=== PATIENT | male | born 1975 | race Caucasian/White ===

== ENCOUNTER 2025-02-03 08:47 | Emergency (ER) | payer OTHER, SELFPAY ==
--- NOTE | ~2025-02-03 | XR_ITS ---
CLINICAL HISTORY: lac 2 view left 5th digit Comparison: None Findings: There is a soft tissue laceration medially in the distal aspect of the 5th digit adjacent to the distal phalanx. No underlying osseous compromise. No radiopaque foreign bodies. No acute fractures or dislocation. IMPRESSION: Soft tissue laceration without obvious underlying osseous compromise or radiopaque foreign bodies. This document has been electronically signed by: Jewel Carmen MD on 02/03/2025 09:35:25
[2025-02-03 08:50] VITALS: BP 160/99; PULSE 93; RESP 16; TEMP 36.2; O2SAT 93; BMI 37.9
--- NOTE | 2025-02-03 09:03 | ED_ITS ---
HPI - Wound/Laceration General Chief Complaint: Wound/Laceration Stated Complaint: finger lac @ work Time Seen by Provider: 02/03/25 09:02 Source: patient and RN notes reviewed Mode of arrival: ambulatory Limitations: no limitations History of Present Illness ED Provider: Amina Starkey PA-C HPI narrative: This is a 49-year-old male who presents emergency department for evaluation left 5th digit laceration. Patient reports that while he was at work this morning his finger got caught between a wrench in a metal cart. He states that he is right-hand dominant. His last tetanus was within the last 5 years. He took 2 aspirin prior to his arrival today. No other complaints or concerns at this time. Onset (ago): minute(s) Place: work Patient tetanus UTD: Yes Context: accidental Associated symptoms: pain Treatments prior to arrival: bandage Related Data Previous Rx's ?Medication ?Instructions ?Recorded acetaminophen 500 mg tablet 1,000 mg (2 x 500 mg) PO Q ID PRN 02/03/25 (Tylenol Extra Strength) pain #30 tabs cephalexin 500 mg capsule 500 mg PO QID 7 days #28 cap s 02/03/25 ibuprofen 600 mg tablet 600 mg PO Q6H PRN pain #30 t abs 02/03/25 morphine 15 mg immediate release 15 mg PO Q6H PRN irma re pain 02/03/25 tablet (scale score 7-10) #7 tabs ondansetron 4 mg disintegrating 4 mg PO Q6H PRN nausea and 02/03/25 tablet vomiting #10 tabs Allergies Allergy/AdvReac Type Severity Reaction Status Date / Time No Known Allergies Allergy Verified 02/03/25 08:50 Review of Systems 2 Review of Systems: Constitutional : No Fever, No Chills ENT/Mouth : No sore throat, No Rhinorrhea Eyes: No Eye Pain, No Swelling, No Redness Cardiovascular : No Chest Pain, No SOB Respiratory : No Cough, No Sputum Gastrointestinal : No Nausea, No Vomiting, No Diarrhea, No abdominal Pain Genitourinary : No Dysuria, No Hematuria Musculoskeletal : No joint pain, No Myalgias, No Joint Swelling Skin : No Skin Lesions Neuro : No Weakness, No Numbness, No Headache All other systems reviewed and are negative Yes all other systems are reviewed and are negative Constitutional: Constitutional: Reports as per HPI [facility] Social History Social History Advance Directives: No Advance Directives Information Provided: Yes Physical Exam 2 Exam: Exam: General: Awake, alert, and oriented X3. No acute distress. HEENT: Normal inspection CVS: Normal heart rate and rhythm. Pulses normal. Respiratory: No respiratory distress Skin: See below Extremities: See below Neuro: Oriented X 3. No motor deficit. No sensory deficit. Left fifth digit there is a full thickness laceration noted to the nail bed. When patient lifts finger off of table, entire DIP falls. Sensation intact. Strong radial pulse Vital Signs: Vital Signs: Last Vital Signs Temp 97.2 F 02/03/25 12:22 Pulse 69 02/03/25 12:22 Resp 16 02/03/25 12:22 BP 160/99 H 02/03/25 12:22 Pulse Ox 96 02/03/25 12:22 O2 Del Method Room Air 02/03/25 12:22 BMI result Body Mass Index 37.9 Medications Administered Discontinued Medications Generic Name Dose Route Start Last Admin Trade Name Freq PRN Reason Stop Dose Admin Acetaminophen 975 mg 02/03/25 09:26 02/03/25 09:39 Acetaminophen 325 Mg Tablet PO 02/03/25 09:27 975 mg ONCE ONE Administration Cefazolin Sodium 1 gm 02/03/25 09:57 02/03/25 11:06 Cefazolin Sodium 1 Gm Vial IVPUSH 02/03/25 09:58 1 gm ONCE ONE Administration Lidocaine HCl 5 ml 02/03/25 09:15 02/03/25 11:06 Lidocaine Hcl 1 % Mpf 5 Ml Vial INFILTRATI 02/03/25 09:16 5 ml ONCE ONE Administration Morphine Sulfate 4 mg 02/03/25 10:20 02/03/25 10:33 Morphine Sulfate 4 Mg/Ml Cartridge IVPUSH 02/03/25 10:21 4 mg ONCE ONE Administration Protocol Ondansetron HCl 4 mg 02/03/25 10:20 02/03/25 10:33 Ondansetron Hcl 4 Mg/2 Ml Vial IVPUSH 02/03/25 10:21 4 mg ONCE ONE Administration Medical Decision Making Medical Decision Making MDM Narrative: This is a 49-year-old male who presents emergency department for evaluation left 5th digit laceration. Patient reports that while he was at work this morning his finger got caught between a wrench in a metal cart. On arrival, blood pressure elevated 160/99, likely secondary to pain. Patient with open fracture noted. Consult with orthopedic Marisabel SIERRA who consulted Dr. Harden. Awaiting recommendations. 09:37 AM 02/03/2025 (Amina Starkey PA-C): Dr. Harden stating if well vasculitis, can do digital or ulnar block, washed out, and close suture the wound. Advised dose of antibiotics and oral antibiotics. They will follow-up with patient early next week. Patient given 1 dose of Ancef. Wound was repaired using 5 5 0 sutures, see procedure note for detail. X-ray of the left finger was initially read as no acute findings, however patient with obvious fracture. They will place an addendum onto this Radiology read. Patient discharged on Keflex, given ibuprofen, Tylenol, morphine, and Zofran prescriptions. Given orthopedic referral. Splinted with finger splint Differential Diagnosis Differential Diagnoses: The differential diagnosis associated with the presentation includes Fracture, open fracture, laceration, contusion Procedures Laceration Laceration 1: Site: hand Side (If applicable): left Size (cm): 2 Description: linear Depth: simple, single layer Local Anesthetic: lidocaine 1% Amount of anesthesia used (mL): 5 Pre-repair: wound explored, irrigated extensively and deep structures intact Skin layer closed with: nylon Size (cm): 5-0 Number of sutures: 5 Technique: simple, interrupted Discharge Plan Discharge Clinical Impression: Laceration, Finger fracture, left Patient Disposition: Home, Self-Care Instructions: Care For Your Stitches (ED), Laceration (ED), Finger Fracture (ED) Additional Instructions: You were seen in the ER after injuring your left fifth digit. We placed 5 sutures in your finger. Please keep wound clean and dry. The dressing that we put on today, you can remove tomorrow. You can gently rinse with mild soap and water. Wear finger splint at all times other than rinsing wound. Keep wound covered. Follow up with the business process specialist, call on wednesday to make an appointment. You need to take prescribed antibiotic as directed. Finish the entire course. Alternate between ibuprofen and Tylenol. Ibuprofen 600 mg every 6 hours, 2 hours later take Tylenol 1000 mg (take this every 8 hours). Morphine as a strong narcotic pain medication, reserve this for severe pain only. Please be advised that this can cause drowsiness, do not drink alcohol or drive while taking this medication. This also is an addictive medication therefore should only be reserved for severe pain only. Ondansetron is a nausea medication that you can take if you do have nausea with taking the morphine. If any new or worsening symptoms occur including but not limited to severe pain, fevers, significant drainage to your finger, loss of sensation to your finger, if the tip of your finger becomes very discolored, please seek emergent care. Prescriptions: New ibuprofen 600 mg tablet 600 mg PO Q6H PRN (Reason: pain) Qty: 30 0RF acetaminophen [Tylenol Extra Strength] 500 mg tablet 1,000 mg PO QID PRN (Reason: pain) Qty: 30 0RF morphine 15 mg tablet 15 mg PO Q6H PRN (Reason: severe pain (scale score 7-10)) Qty: 7 0RF Rx Instructions: Partial Fill upon patient request. ondansetron 4 mg tablet,disintegrating 4 mg PO Q6H PRN (Reason: nausea and vomiting) Qty: 10 0RF cephalexin 500 mg capsule 500 mg PO QID 7 Days Qty: 28 0RF Referrals: [facility] [Provider Group] Interventions: ED Discharge Assessment Last Done: 02/03/25 12:22 Discharge Date/Time: 02/03/25 12:23 Print Language: Italian
--- OUTSIDE RECORDS SUMMARY | 2025-02-03 10:09 | XMS_ITS | Data Portability ---
Author Organization [place] [facility] Address [address] [place] [address] Assessment Encounter Date Assessment Date Assessment LastModified by Organization Details LastModified Time 01/24/2020 01/24/2020 44 y/o WM to establish. Duong and Suni Herring referred. We spent greater than 40 minutes of face to face time today discussing his past medical, family, surgical and social history as well as current medical complaints. stress pain and pressure in the neck labs todaya ekg normal. trial of bystolic labs and f/u. Not available 01/24/2020 15:08:35 02/08/2020 02/08/2020 I spent over 30 minutes in the care and management of this patient. Most of the time was used in counseling and education and explaining plan of care. [email or web address] Not available 02/08/2020 21:33:33 05/09/2020 05/09/2020 I spent over 30 minutes in the care and management of this patient. Most of the time was used in counseling and education and explaining plan of care. [email or web address] Not available 05/09/2020 10:00:12 Plan of Treatment Reminders Order Date Submit Date Provider Last Modified By Organization Details Last Modified Time Details Appointments None recorded. Lab HbA1c (hemoglob in A1c), blood 2020 021 [facility], [address] [facility], [address], [place], [address], 14:53:20 CMP, serum or plasma 2020 021 [facility], [address], [address], [place], [address], 1 14:18:12 CMP, serum or plasma 2019 020 [facility], [address], [address], [place], [address], 0 14:18:52 T4, free, serum 2019 020 [facility], [address], [address], [place], [address], 0 14:53:21 TSH, serum or plasma 2019 020 [facility], [address], [address], [place], [address], 0 14:53:22 CBC w/ diff 2019 020 [facility], [address], [address], [place], [address], 0 17:08:16 lipid panel, serum 2019 020 [facility], [address], [address], [place], [place], [address], 0 14:18:53 testoster one, total, serum 2019 020 [facility], [address], [address], [place], [address], 0 14:53:23 HbA1c (hemoglob in A1c), blood 2019 020 [facility], [address], [address], [place], [address], 0 17:44:10 Referral None recorded. Procedures None recorded. Surgeries None recorded. Imaging None recorded. Medication Orders Bystolic 5 mg tablet 2019 020 INTERFACE [id number], [address], [place], [place], [id number], 0 21:34:03 Patient TargetsNo targets recorded. Patient Instructions Encounter Date Encounter Id Patient Instructions Last Modified By Organization Details Last Modified Time 07/25/2019 [id number] bruises: care instructions Not available 07/25/2019 12:15:29 today we discuss ed oral anti-inflammatory weightbearing as tolerated rest ice compression and elevation followed back up with me in 2 weeks of continued pain for repeat x-rays. Not available 07/25/2019 12:15:21 01/24/2020 [id number] palpitations: ca re instructions Not available 01/24/2020 15:03:06 high blood pressure: care instructions Not available 01/24/2020 15:08:35 learning about high blood pressure Not available 01/24/2020 15:08:36 hypoglycemia: ca re instructions Not available 01/24/2020 15:03:07 02/08/2020 [id number] high blood pressure: care instructions [email or web address] Not available 02/08/2020 21:33:55 learning about high blood pressure [email or web address] Not available 02/08/2020 21:33:55 body mass index: care instructions [email or web address] Not available 02/08/2020 21:33:55 learning about healthy weight [email or web address] Not available 02/08/2020 21:33:55 05/09/2020 [id number] high blood pressure: care instructions [email or web address] Not available 05/09/2020 10:00:14 learning about high blood pressure lsamarin Not available 05/09/2020 10:00:14 body mass index: care instructions [email or web address] Not available 05/09/2020 10:00:14 learning about healthy weight [email or web address] Not available 05/09/2020 10:00:14 Reason for Referral None Reported. Results Created Date Observation Date Name Description Value Unit Range Abnormal Flag Note LastModifiedBy Organization Detail LastModifiedTime 01/24/20 20 01/24/2020 CBC w/ diff WBC 6.0 K/uL 4.8-10 .8 Not Available [facility] [address] [facility] [address], [place], [address], 01/24/2020 17:08:16 01/24/20 20 01/24/2020 CBC w/ diff RBC 5.00 M/uL 4.70-6 .10 Not Available [facility] [address] [facility] [address], [place], [address], 01/24/2020 17:08:16 01/24/20 20 01/24/2020 CBC w/ diff HGB 15.7 g/dL 14.0-1 8.0 Not Available [facility] [address] [facility] [address], [place], [address], 01/24/2020 17:08:16 01/24/20 20 01/24/2020 CBC w/ diff HCT 46.4 % 42.0-5 2.0 Not Available [facility] [address] [facility] [address], [place], [address], 01/24/2020 17:08:16 01/24/20 20 01/24/2020 CBC w/ diff MCV 93 fL 80-94 Not Available [facility] [address] [facility] [address], [place], [address], 01/24/2020 17:08:16 01/24/20 20 01/24/2020 CBC w/ diff MCH 31.4 pg 27.0-3 1.0 high Not Available [facility] [address] [facility] [address], [place], [address], 01/24/2020 17:08:16 01/24/20 20 01/24/2020 CBC w/ diff MCHC 33.9 g/dL 32.0-3 6.0 Not Available [facility] [address] [facility] [address], [place], [address], 01/24/2020 17:08:16 01/24/20 20 01/24/2020 CBC w/ diff plt 189 K/uL 130-40 0 Not Available [facility] [address], [place], [address], 01/24/2020 17:08:16 01/24/20 20 01/24/2020 CBC w/ diff RDW 13.8 % 11.5-1 6.0 Not Available [facility] [address], [place], [address], 01/24/2020 17:08:16 01/24/20 20 01/24/2020 CBC w/ diff _MPV 8.9 Not Available [facility] [address], [place], [address], 01/24/2020 17:08:16 01/24/20 20 01/24/2020 CBC w/ diff neut % 61.2 % 43.0-7 5.0 Not Available [facility] [address], [place], [address], 01/24/2020 17:08:16 01/24/20 20 01/24/2020 CBC w/ diff lym % 26.9 % 20.5-5 1.1 Not Available [facility] [address], [place], [address], 01/24/2020 17:08:16 01/24/20 20 01/24/2020 CBC w/ diff mono % 8.1 % 1.7-10 .0 Not Available [facility] [address], [place], [address], 01/24/2020 17:08:16 01/24/20 20 01/24/2020 CBC w/ diff eos % 2.1 % 0.0-7. 0 Not Available [facility] [address] [facility] [address], [place], [address], 01/24/2020 17:08:16 01/24/20 20 01/24/2020 CBC w/ diff baso % 1.7 % 0.0-2. 0 Not Available [facility] [address] [facility] [address], [place], [address], 01/24/2020 17:08:16 01/24/20 20 01/24/2020 CBC w/ diff neut # 3.7 K/uL 1.4-6. 5 Not Available [facility] [address] [facility] [address], [place], [address], 01/24/2020 17:08:16 01/24/20 20 01/24/2020 CBC w/ diff lym # 1.6 K/uL 1.3-3. 4 Not Available [facility] [address] [facility] [address], [place], [address], 01/24/2020 17:08:16 01/24/20 20 01/24/2020 CBC w/ diff mono # 0.5 K/uL 0.0-0. 8 Not Available [facility] [address] [facility] [address], [place], [address], 01/24/2020 17:08:16 01/24/20 20 01/24/2020 CBC w/ diff eos # 0.1 K/uL 0.0-0. 7 Not Available [facility] [address] [facility] [address], [place], [address], 01/24/2020 17:08:16 01/24/20 20 01/24/2020 CBC w/ diff baso # 0.1 K/uL 0.0-0. 2 Not Available [facility] [address] [facility] [address], [place], [address], 01/24/2020 17:08:16 01/24/20 20 01/24/2020 HbA1c (hemo globi n A1c), blood Hb A1C 6.3 % 4.2-5. 8 high Not Available [facility] [address] [facility] [address], [place], [address], 01/24/2020 17:44:10 01/24/20 20 01/25/2020 CMP, serum or plasm a glucose 76 mg/dL 74-100 IMPAI RED FASTI NG GLUCO SE - >100- 125 IMPAI RED 2HR POST PRAND IAL - >140 IMPAI RED RANDO M GLUCO SE - >140- 200 Not Available [facility] [address] [facility] [address], [place], [address], 01/25/2020 14:18:52 01/24/20 20 01/25/2020 CMP, serum or plasm a BUN 11 mg/dL 9-20 Not Available [facility] [address] [facility] [address], [place], [address], 01/25/2020 14:18:52 01/24/20 20 01/25/2020 CMP, serum or plasm a crea 0.8 mg/dL 0.7-1. 3 Not Available [facility] [address] [facility] [address], [place], [address], 01/25/2020 14:18:52 01/24/20 20 01/25/2020 CMP, serum or plasm a Na 140 mmol/ L 137-14 5 Not Available [facility] [address] [facility] [address], [place], [address], 01/25/2020 14:18:52 01/24/20 20 01/25/2020 CMP, serum or plasm a K 5.4 mmol/ L 3.5-5. 1 high Not Available [facility] [address] [facility] [address], [place], [address], 01/25/2020 14:18:52 01/24/20 20 01/25/2020 CMP, serum or plasm a cL 101 mmol/ L 98-107 Not Available [facility] [address] [facility] [address], [place], [address], 01/25/2020 14:18:52 01/24/20 20 01/25/2020 CMP, serum or plasm a TCO2 26 mmol/ L 22-33 Not Available [facility] [address] [facility] [address], [place], [address], 01/25/2020 14:18:52 01/24/2001/25/2020 CMP, serum or plasm a anion gap 18.4 mmol/ L 10.0-2 0.0 Not Available [facility] [address] [facility] [address], [place], [address], 01/25/2020 14:18:52 01/24/20 20 01/25/2020 CMP, serum or plasm a calcium 10.1 mg/dL 8.4-10 .2 Not Available [facility] [address] [facility] [address], [place], [address], 01/25/2020 14:18:52 01/24/2001/25/2020 CMP, serum or plasm a total protein 7.4 g/dL 6.3-8. 2 Not Available [facility] [address] [facility] [address], [place], [address], 01/25/2020 14:18:52 01/24/20 20 01/25/2020 CMP, serum or plasm a albumin 4.7 g/dL 3.5-5. 0 Not Available [facility] [address] [facility] [address], [place], [address], 01/25/2020 14:18:52 01/24/2001/25/2020 CMP, serum or plasm a globulin 2.7 g/dL 2.2-4. 2 Not Available [facility] [address] [facility] [address], [place], [address], 01/25/2020 14:18:52 01/24/20 20 01/25/2020 CMP, serum or plasm a A/G ratio 1.7 calc 1.0-2. 0 Not Available [facility] [address] [facility] [address], [place], [address], 01/25/2020 14:18:52 01/24/20 20 01/25/2020 CMP, serum or plasm a ALT(SGPT) 52 IU/L 0-50 high NOTE: OF 03/01 , DUE TO A REAGE NT BARILLAS E BY [facility], THE REFER ENCE RANGE S FOR ALT HAVE BARILLAS ED FOR MALE AND FEMAL E. Not Available [facility] [address] [facility] [address], [place], [address], 01/25/2020 14:18:52 01/24/20 20 01/25/2020 CMP, serum or plasm a AST(SGOT) 39 IU/L 15-46 Not Available [facility] [address] [facility] [address], [place], [address], 01/25/2020 14:18:52 01/24/2001/25/2020 CMP, serum or plasm a alk phos 76 IU/L 38-126 Not Available [facility] [address] [facility] [address], [place], [address], 01/25/2020 14:18:52 01/24/20 20 01/25/2020 CMP, serum or plasm a tbil 0.7 mg/dL 0.2-1. 3 Ortho Diagn ositi cs has deter mined Eltro mbopa g inter feres with Vitro s TBIL and Vitro s BuBc resul ts when admin ister ed to patie nts. Eltro mbopa g is a bone marro w stimu lant used to treat throm bocyt openi a and aplas tic anemi a. * Not Available [facility] [address] [facility] [address], [place], [address], 01/25/2020 14:18:52 01/24/20 20 01/25/2020 lipid panel , serum cholesterol 151 mg/dL 112-20 0 Note: Refer ence Range s Barillas ed 05/11 Not Available [facility] [address] [facility] [address], [place], [address], 01/25/2020 14:18:53 01/24/20 20 01/25/2020 lipid panel , serum triglyceride 113 mg/dL 0-150 Not Available [facility] [address] [facility] [address], [place], [address], 01/25/2020 14:18:53 01/24/20 20 01/25/2020 lipid panel , serum HDL direct 37 mg/dL 40-60 low Not Available [facility] [address] [facility] [address], [place], [address], 01/25/2020 14:18:53 01/24/20 20 01/25/2020 lipid panel , serum VLDL 23 mg/dL 6-40 Not Available [facility] [address] [facility] [address], [place], [address], 01/25/2020 14:18:53 01/24/20 20 01/25/2020 lipid panel , serum LDL calc 91 calc 0-100 The calcu latio n of LDL-c holes terol and VLDL- Nena stero l are only relia ble when the Trigl yceri de level is less than 400 mg/dl . Likew ise other calcu latio ns like LDL/H DL ratio will not be relia ble. There fore, when the trigl yceri de level is above 400 mg/dl , a relia ble LDL judd ntrat ion will requi re direc t measu remen t rathe r than calcu latio n. Not Available [facility] [address] [facility] [address], [place], [address], 01/25/2020 14:18:53 01/24/20 20 01/25/2020 lipid panel , serum chol/HDL ratio 4.1 calc 0.0-4. 0 high Not Available [facility] [address] [facility] [address], [place], [address], 01/25/2020 14:18:53 01/24/20 20 01/25/2020 GFR, estim ated (eGFR ), serum eGFR 104.1 mL/mi n >60.0 Note: The GFR resul t is based on a patie nt of the Cauca tom Race. If the patie nt is Afric an Ameri can, ki orta ply the resul t value by 1.21 to obtai n the accur ate GFR value . Not Available [facility] [address], [place], [address], 01/25/2020 14:18:54 01/24/20 20 01/25/2020 T4, free, serum free T4 1.47 NG/dL 0.78-2 .19 This free t4 was evalu ated using Ortho Diagn ositi cs ECI Micro welll Vitro s 5600 techn ology . Not Available [facility] [address] [facility] [address], [place], [address], 01/25/2020 14:53:21 01/24/20 20 01/25/2020 TSH, serum or plasm a TSH 0.96 uIU/m L 0.40-4 .50 R efere nce Range Barillas e 09/07 per [facility] Note: Patie nts takin g 8 ng/ml of Bioti n could have a >or= 10% bias in TSH resul ts. This TSH was evalu ated using Ortho Diagn ositi cs [employer] Micro well[employer] Vitro s 5600 techn ology . Not Available [facility] [address] [facility] [address], [place], [address], 01/25/2020 14:53:22 01/24/20 20 01/25/2020 testo stero ne, total , serum testosterone 577 NG/dL 132-81 3 Not Available [facility] [address] [facility] [address], [place], [address], 01/25/2020 14:53:23 05/10/19 21 05/09/2020 CMP, serum or plasm a glucose 105 mg/dL 74-100 high IMPAI RED FASTI NG GLUCO SE - >100- 125 IMPAI RED 2HR POST PRAND IAL - >140 IMPAI RED RANDO M GLUCO SE - >140- 200 Not Available [facility] [address] [facility] [address], [place], [address], 05/09/2020 14:18:12 05/10/19 21 05/09/2020 CMP, serum or plasm a BUN 20 mg/dL 9-20 Not Available [facility] [address] [facility] [address], [place], [address], 05/09/2020 14:18:12 05/10/19 21 05/09/2020 CMP, serum or plasm a crea 0.9 mg/dL 0.7-1. 3 Not Available [facility] [address] [facility] [address], [place], [address], 05/09/2020 14:18:12 05/10/19 21 05/09/2020 CMP, serum or plasm a Na 140 mmol/ L 137-14 5 Not Available [facility] [address] [facility] [address], [place], [address], 05/09/2020 14:18:12 05/10/19 21 05/09/2020 CMP, serum or plasm a K 5.2 mmol/ L 3.5-5. 1 high Not Available [facility] [address] [facility] [address], [place], [address], 05/09/2020 14:18:12 05/10/19 21 05/09/2020 CMP, serum or plasm a cL 102 mmol/ L 98-107 Not Available [facility] [address] [facility] [address], [place], [address], 05/09/2020 14:18:12 05/10/19 21 05/09/2020 CMP, serum or plasm a TCO2 30 mmol/ L 22-33 Not Available [facility] [address] [facility] [address], [place], [address], 05/09/2020 14:18:12 05/10/19 21 05/09/2020 CMP, serum or plasm a anion gap 13.2 mmol/ L 10.0-2 0.0 Not Available [facility] [address] [facility] [address], [place], [address], 05/09/2020 14:18:12 05/10/19 21 05/09/2020 CMP, serum or plasm a calcium 9.9 mg/dL 8.4-10 .2 Not Available [facility] [address] [facility] [address], [place], [address], 05/09/2020 14:18:12 05/10/19 21 05/09/2020 CMP, serum or plasm a total protein 6.9 g/dL 6.3-8. 2 Ortho Diagn ositi cs has deter mined Eltro mbopa g inter feres sligh tly with Vitro s TP resul ts, when admin ister ed to roberts chapele nts. Eltro mbopa g is a bone marro w stimu lant used to treat throm bocyt openi a and aplas tic anemi a. * Not Available [facility] [address] [facility] [address], [place], [address], 05/09/2020 14:18:12 05/10/19 21 05/09/2020 CMP, serum or plasm a albumin 4.5 g/dL 3.5-5. 0 Not Available [facility] [address] [facility] [address], [place], [address], 05/09/2020 14:18:12 05/10/19 21 05/09/2020 CMP, serum or plasm a globulin 2.4 g/dL 2.2-4. 2 Not Available [facility] [address] [facility] [address], [place], [address], 05/09/2020 14:18:12 05/10/19 21 05/09/2020 CMP, serum or plasm a A/G ratio 1.9 calc 1.0-2. 0 Not Available [facility] [address] [facility] [address], [place], [address], 05/09/2020 14:18:12 05/10/19 21 05/09/2020 CMP, serum or plasm a ALT(SGPT) 21 IU/L 0-50 NOTE: OF 03/01 , DUE TO A REAGE NT BARILLAS E BY THE [facility] ACT[facility] ER, THE REFER ENCE RANGE S FOR ALT HAVE [facility] ED FOR MALE AND FEMAL E. Not Available [facility] [address] [facility] [address], [place], [address], 05/09/2020 14:18:12 05/10/19 21 05/09/2020 CMP, serum or plasm a AST(SGOT) 27 IU/L 15-46 Not Available [facility] [address] [facility] [address], [place], [address], 05/09/2020 14:18:12 05/10/19 21 05/09/2020 CMP, serum or plasm a alk phos 81 IU/L 38-126 Not Available [facility] [address] [facility] [address], [place], [address], 05/09/2020 14:18:12 05/10/19 21 05/09/2020 CMP, serum or plasm a tbil 0.6 mg/dL 0.2-1. 3 Ortho Diagn ositi cs has deter mined Eljakeo richard g inter feres with Vitro s TBIL and Vitro s BuBc resul ts when admin ister ed to patie nts. Mary ramos g is a bone marro w stimu lant used to treat throm bocyt openi a and aplas tic anemi a. * Not Available [facility] [address] [facility] [address], [place], [address], 05/09/2020 14:18:12 05/10/19 21 05/09/2020 GFR, estim ated (eGFR ), serum eGFR 90.8 mL/mi n >60.0 Note: The GFR resul t is based on a patie nt of the Cauca tom Race. If the patie nt is Afric an anna Hernandes ply the resul t value by 1.21 to obtai n the accur ate GFR value . Not Available [facility] [address] [facility] [address], [place], [address], 05/09/2020 14:18:13 05/10/19 21 05/09/2020 HbA1c (hemo globi n A1c), blood Hb A1C 5.6 % 4.2-5. 8 Not Available [facility] [address] [facility] [address], [place], [address], 05/09/2020 14:53:20 01/24/20 20 01/24/2020 elect harvinder bonilla am No observ ation record ed. BARCODE Not Available 2019 16:18:38 Result Notes None recorded. Problems Name Problem SNOMED Code Status Onset Date Resolution Date Notes Provider Name and Address Organization Details Recorded Time Essential hypertension 98105496 Active 2019 Valente Lua null, [place] - [facility] 0 15:03:21 Body mass index 30+ - obesity 683187953 Active 2019 Chuyita Izquierdo [place], [place] - [facility] 0 21:33:25 Liver enzymes level above reference range 133067847 Active 2019 Chuyita Izquierdo [place], [place] - [facility] 0 21:33:26 Prediabetes 767679071 Active 2019 Chuyita Izquierdo eryn [facility] 0 21:33:27 Problem Notes None recorded. Procedures Surgical History Date Name Laterality Status Provider Name and Address Organization Details Recorded Time EKG completed Valente Lua [facility] 01/24/2020 14:41:15 Xray 3 views RIGHT FOOT completed Bert Granados [facility] 07/25/2019 12:14:53 cholecystectomy completed Dalila Wen [facility] 01/24/2020 13:14:42 Imaging Results None recorded. Procedure Notes None recorded. Medical Equipment None Reported. Allergies No known drug allergies Medications Name Sig Start Date Stop Date Status Note LastModified by Organization Details LastModified Time meloxicam 7.5 mg tablet Take 1 tablet every day by oral route at bedtime for 30 days. 01/23 completed Not Available Not Available Not Available aspirin active Not Available Not Avail able Not Available Bystolic 5 mg tablet Take 1 tablet every day by oral route at bedtime for 90 days. active Not Available Not Available No t Available Vitals Date Recorded Body height Body mass index (BMI) Body weight Heart rate Respiratory rate Body temperature Oxygen saturation Systolic And Diastolic Provider Name and Address Organization Details Last Updated DateTime 1 193.04 cm 28.4 kg/m2 382509. 72 g 82 /min 16 /min 97.3 [degF] 97 % 140/80 mm[Hg] Isela Kilgore [facility] 1 09:20:20 Date Recorded Body weight Systolic And Diastolic Provider Name and Address Organization Details Last Updated DateTime 07/25/2019 281414.17 g 160/106 mm[Hg] Lauryn Giron [facility] 07/25/2019 11:01:36 Date Recorded Body height Body mass index (BMI) Body weight Heart rate Oxygen saturation Respiratory rate Body temperature Systolic And Diastolic Provider Name and Address Organization Details Last Updated DateTime 0 193.04 cm 34.4 kg/m2 102443. 64 g 90 /min 97 % 16 /min 97.7 [degF] 140/96 mm[Hg] Dalila Wen [facility] 0 13:12:49 Date Recorded Body height Body mass index (BMI) Body weight Heart rate Respiratory rate Body temperature Oxygen saturation Systolic And Diastolic Provider Name and Address Organization Details Last Updated DateTime 0 193.04 cm 33.7 kg/m2 704288. 29 g 73 /min 16 /min 97.5 [degF] 95 % 120/90 mm[Hg] Isela Kilgore [place] [facility] 0 08:59:07 Social History Question Answer Notes LastModified by Scheduling Employee Scheduling Software Details LastModified Time Tobacco Smoking Status Current Every Day Smoker Lauryn cerna [place] [facility] 07/25/2019 11:02:12 What Is Your Level Of Caffeine Consumption? Heavy [email or web address] Information not available 07/25/2019 In The 14 Days Before Symptom Onset, Have You Had Close Contact With A Laboratory-confirm ed COVID-19 While That Case Was Ill? No Information n ot available 05/09/2020 In The 14 Days Before Symptom Onset, Have You Had Close Contact With A Person Who Is Under Investigation For COVID-19 While That Person Was Ill? No Information not available 05/09/2020 Have You Been To An Area Known To Be High Risk For COVID-19? No Information not available 05/09/2020 Education 4 Year College [email or web address] Information not available 07/25/2019 Marital Status Single Informatio n not available 07/25/2019 What Was The Date Of Your Most Recent Tobacco Screening? 01/24/2020 Information not available 05/09/2020 How Much Tobacco Do You Smoke? 1 PPW Information not available 07/25/2019 Sex: Unknown Functional Status Question Answer Note LastModified by Scheduling Employee Scheduling Software Details LastModified Time What is your level of alcohol consumption? 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 Family History Relationship Description Onset Age of this Age Resolved Age Notes LastModified by Organization Details LastModified Time Father Hypertensive disorder Not available 03/2019 13:13:40 Father Coronary arterioscler osis [email or web address] Not available 03/2019 13:14:12 Father Myocardial infarction [email or web address] Not available 05/09 09:05:51 Mother Hypertensive disorder [email or web address] Not available 03/2019 13:13:45 Mother Malignant neoplasm of colon [email or web address] Not available 2020 09:05:51 Medical History No medical history recorded. Past Encounters Encounter ID Performer Location Encounter Start Date Encounter Closed Date Diagnosis/Indication Diagnosis SNOMED-CT Code Diagnosis ICD10 Code Diagnosis IMO Codes Diagnosis Note [id number] Costa Granados DPM [facility] [address] [facility], [address] [address] 07/25/2019 10:44:13 07/25/2019 11:21:45 Contusion of foot 81947710 S90.31XA Antalgic gait 94619950 R 26.89 Walking disability 39924 8008 R26.2 [id number] Valente Lua M.D. [facility] [address] [facility], [address] [address] 01/24/2020 12:50:48 01/24/2020 15:10:28 Atypical chest pain 680597988 R07.89 Palpitations 34437781 R0 0.2 Adult heal th examination 752499897 Z00.00 Hypoglycemia 021348838 E 16.2 Fatigue 82563839 R53.83 Essential hypertension 59547310 I10 trial of bystolic 5 mg daily and f/u to discuss. [id number] Valente Lua M.D. [facility] [address] [facility], [address] [address] 02/08/2020 08:50:17 02/09/2020 14:56:02 Essential hypertension 98163770 I10 continue bystolic 5 mg. Blood pressure well controlled on current medication regimen. Educated to monitor blood pressure at home and call office if BP consistent ly >140/90. Prediabetes 496041887 R7 3.03 a1c 6.3%. declines medication today. would like to try diet and lifestyle first. will f/u in 3 months for recheck Liver enzy mes level above reference range 466175501 R74.8 counseled on low-fat diet and weight loss. will recheck in 3 months Body mass index 30+ - obesity 952022101 Z68.33 Discussed lifestyle adjustment s such as increasing intake of fiber and following a heart healthy diet plan (low-fat, low-carb, and low-sodium ). Instructed to eat smaller, more frequent meals. Encouraged to increase amount of physical activity as tolerated, with goal being to exercise daily for a minimum of thirty minutes. [id number] Valente Lua M.D. [facility] [address] [facility], [address] [place] [address] 05/09/2020 09:01:25 05/14/2020 07:21:20 Essential hypertension 75244157 I10 bp stable. no longer taking bystolic. continue to work on lifestyle and continue weight loss efforts. Prediabetes 902046897 R7 3.03 last a1c was 6.3%. he is down 50 lbs. has been working on lifestyle changes including diet and running daily. will recheck today Liver enzy mes level above reference range 357054497 R74.8 continue weight loss efforts. rechecking cmp today Body mass index 30+ - obesity 127234823 Z68.33 Discussed lifestyle adjustment s such as increasing intake of fiber and following a heart healthy diet plan (low-fat, low-carb, and low-sodium ). Instructed to eat smaller, more frequent meals. Encouraged to increase amount of physical activity as tolerated, with goal being to exercise daily for a minimum of thirty minutes. Health Concerns Section Related Observation LastModified by Organization Detai ls LastModified Time None Recorded Concern Status LastModified by Organization Details LastModified Time None Recorded Advance Directives Directive None Recorded Payers Insurance Date Sequence Insurance Name Policy Number Policy Ayoub Covered Member ID Ayoub Member ID Guarantor Name 09/15/2024 1 [place] [employer] ([place]) [id number] Fabrizio Coombs [id number] Fabrizio Coombs Notes Date Note Type Note Provider Name and Address Organization Details Recorded Time 07/25/2019 text/html here todayChief complaint and patient 0.3-year-old malecontusion with a knee By another male phone to the dorsal aspect of his right transverse tarsal joint he's had some pain and swelling here today and counseling boots and just felt the necessity to have it checked out MELVINA Beck - [facility] 07/25/2019 12:15:32 01/24/2020 text/html Hypertension GP F/UReported by PatientHPIFor control, patient reportsat goal,usually well controlled,bp normal since last visit, andbp normal on current medication. For associated symptoms, patient reportsno dizziness,no lightheadedness,no chest pain,no shortness of breath,no palpitations, andno edema. For lifestyle, patient reportsregular exerciseandlimiting /avoiding salt. For medications, patient reportstaking medications as directedandno side effects from medication. 01/24/2020 Patient presents today for a check up, establish care and complaining of heart racing............. . 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 Valente cerna [facility] 01/24/2020 15:09:03 02/08/2020 text/html 02/08/20 pt is not to sure why he is here. Dr. Hay started him on BP meds. he did receive a call from us stating he needed to come in and discuss blood work. 44-year-old male presenting today for f/u on lab work and blood pressure. BP today is 120/90 and 73 bpm. started on bystolic 5 mg previous visit with dr. lua. has not been consistent with medication but will try harder he says. denies any cv complaints.kidney function stable on labs. gfr was 104.1 and creatinine 0.8. thyroid panel stable. lipid panel overall stable. total chol. 151, triglycerides 113 and LDL 91. Did have slighty elevated alt at 52. ast was 39. has been running again and working on diet.a1c was 6.3. discussed with pt but he is wanting to worik on diet first. does not do well with medications and often forgets. would like to try to work on diet and then [facility] and [facility] 02/08/2020 21:35:15 05/09/2020 text/html 05/09/20 Pt told the truth, he only took new medication for a couple of days 44-year-old male presenting today for f/u on lab work and blood pressure. BP today is 140/80 and 82 bpm. started on bystolic 5 mg previous visit with dr. lua. however he stopped taking it and decided to work on lifestyle. he worked on his diet and starting running every day. he has lost 50 lbs since january. his a1c in january was 6.3. due for recheck today. MELVINA Garcia - [facility] 05/09/2020 20:38:54
--- OUTSIDE RECORDS SUMMARY | 2025-02-03 10:09 | XMS_ITS | Continuity of Care Document ---
Author Organization [employer] Address [address] [place] [address] Phone Problems Prediabetes Onset:08-Feb-2020 21:33 Elevated liver enzymes level Onset:08-Feb-2020 21:33 Body mass index 30+ - obesit y Onset:08-Feb-2020 21:33 Essential hypertension Onset:24-Jan-2020 15:03 Migraine headache Onset:21-Mar-2017 1:02 Status:Resolved Back pain Onset:13-Aug-2016 12:38 Lymph nodes enlarged Onset:21-Dec-2014 13:36 Nicotine dependence Onset:19-Jul-2014 16:01 Encounter for preventive hea lt examination Onset:19-Jul-2014 15:56 Impaired fasting glucose Onset:19-Jul-2014 15:56 Former smoker Onset:19-Jul-2014 15:19 Current every day smoker Onset:19-Jul-2014 15:19 Colon cancer Onset:19-Jul-2014 15:19 Family history of myocardial infarction Onset:19-Jul-2014 15:19 Sinus congestion Onset:16-Jun-2013 16:58 Fever Onset:16-Jun-2013 16:21 Tension type headache Onset:06-Jan-2013 0:10 Status:Resolved Depression Onset:06-Jan-2013 0:10 Status:Resolved Acute otitis externa Onset:06-Jan-2013 0:10 Status:Resolved Earache Onset:06-Jan-2013 0:10 Status:Resolved Fatigue Onset:06-Jan-2013 0:10 Cough Onset:06-Jan-2013 0:10 Status:Assumed Resolved Cough Onset:06-Jan-2013 0:10 Status:Resolved Acute foot pain Onset:06-Jan-2013 0:10 Status:Resolved Diarrhea Onset:06-Jan-2013 0:10 Status:Resolved Insomnia Onset:06-Jan-2013 0:10 Acute sinusitis Onset:06-Jan-2013 0:10 Status:Resolved History of upper respiratory infection Onset:06-Jan-2013 0:10 Status:Resolved History of acute bronchitis Onset:06-Jan-2013 0:10 Status:Assumed Resolved Urinary Tract Infection Onset:08-Mar-2006 20:59 Status:Resolved Allergies and Adverse Reactions No Known Drug Allergies(Frederic rgy) Onset: 09-May-2020 No Known Drug Allergies(Frederic rgy) Onset: 14-Apr-2004 13:28 NO KNOWN ENVIRONMENTAL ALLER GIES(Allergy) Medications Norel CS 10-4-12.5 MG/5ML LIQD S tart:16-Jun-2013 Status:Discontinued Multivitamins TABS;qd Start: Comments:qd acetaminophen 500 MG / HYDRO codone bitartrate 7.5 MG Oral Tablet Start:21-Apr-2010 Status:Discontinued methylPREDNISolone 4 MG Oral Tablet Start:21-Apr-2010 Status:Discontinued indomethacin 50 MG Oral Capsule Start:21-Apr-2010 Status:Discontinued ciprofloxacin 3 MG/ML / dexa methasone 1 MG/ML Otic Suspension [Ciprodex];112 2 OT bid Start:10-Jan-2009 Status:Discontinued Comments:bid traMADol hydrochloride 50 MG Oral Tablet;90 3 OR tid Start:07-Sep-2008 Status:Discontinued Comments:tid cyclobenzaprine hydrochloride 10 MG Oral Tablet; 90 3 OR tid Start:07-Sep-2008 Status:Discontinued Comments:tid moxifloxacin 400 MG Oral Tablet [Avelox];10 1 OR qd Start:30-Dec-2006 Status:Discontinued Comments:qd atropine sulfate 0.025 MG / diphenoxylate hydrochloride 2.5 MG Oral Tablet Start:18-Nov-2006 Status:Complete promethazine hydrochloride 25 MG Oral Tablet Start:09-Mar-2006 Status:Discontinued 24 HR clarithromycin 500 MG Extended Release Oral Tablet;20 2 OR qd Start:08-Mar-2006 Status:Complete Comments:qd 12 HR guaiFENesin 600 MG Ext ended Release Oral Tablet [Mucinex];20 1 OR bid Start:08-Mar-2006 Status:Complete Comments:bid Tussionex [employer] Start: Status:Complete RETURN TO WORK Start: 7 Status:Complete amoxicillin 875 MG / clavulanate 125 MG Oral Tab let Start:14-Apr-2004 Status:Complete 12 HR guaiFENesin 600 MG Ext ended Release Oral Tablet [Mucinex];30 1 OR bid Start:14-Apr-2004 Status:Complete Comments:bid oxymetazoline hydrochloride 0.5 MG/ML Nasal Spra y;12 2 NA bid Start:14-Apr-2004 Status:Complete Comments:bid Vital Signs 09-May-2020 9:05 BMI 28.4 kg/m2 BP Diastolic 80 mm[Hg] BP Systolic 140 mm[Hg] Pulse 82 /min Respiratory Rate 16 /min Temperature 97.34 f O2 SAT 97 % Height 76 in Weight 233.12 lb 08-Feb-2020 8:51 BMI 33.7 kg/m2 BP Diastolic 90 mm[Hg] BP Systolic 120 mm[Hg] Pulse 73 /min Respiratory Rate 16 /min Temperature 97.52 f O2 SAT 95 % Height 76 in Weight 276.5 lb 24-Jan-2020 12:51 BMI 34.4 kg/m2 BP Diastolic 96 mm[Hg] BP Systolic 140 mm[Hg] Pulse 90 /min O2 SAT 97 % Respiratory Rate 16 /min Temperature 97.7 f Height 76 in Weight 283 lb 25-Jul-2019 10:49 BP Diastolic 106 mm[Hg] BP Systolic 160 mm[Hg] Weight 240 lb
--- OUTSIDE RECORDS SUMMARY | 2025-02-03 10:09 | XMS_ITS | Patient Health Record ---
Author Organization [facility]) Address [address] [place] [id number] Care Team Providers Care Negative Turner Apprentice Name Role Phone Vincent Osorio Unavailable [phone] Allergies No Known Allergies Results Component Value Reference Range Notes Influenza A (Not yet reviewe d by provider) Interpretation:Positive Performing Lab: Notes/Report: Positive Influenza B (Not yet reviewe d by provider) Interpretation:Negative Performing Lab: Notes/Report: Negative Reason For Referral No Information Medications Medication SIG (Take, Route, Frequency, Duration) Notes Start Date End Date Status dexAMETHasone 6 MG Tablet 1 tablet Orall y once a day; Duration: 5 days 03/30/2024 Active Ipratropium [place] 0.06 % Solution 2 sprays in each nostril Nasally four times a day; Duration: 7 days 03/30/2024 Active Naproxen 500 MG Tablet 1 tablet with fahad d or milk as needed Orally every 12 hrs; Duration: 7 days 03/30/2024 Active HYDROcodone Bit-Homatrop MBr 5-1.5 MG/5ML Solution 5 mL as needed Orally twice a day; Duration: 5 days 03/30/2024 Active Social History Tobacco Use: Social History Observation Description Date Details (start date - stop date) Current Smoker NA - NA Social History Tobacco Use: Social Info Question Answer Notes Tobacco Control (Standard) Tobacco use: Current smoker Problems Problem Type SNOMED Code ICD Code Onset Dates Problem Status W/U Status Risk Notes 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 Problem Influenza A virus (390538010) Influenza A (J10.1) Active confirmed Problem Cough (59647522) Cough (R05.9) Active confirmed Vital Signs Heart Rate 100 /min 03/30/2024 Temperature 98.8 degrees Fahrenheit 03/30/2024 Respiratory Rate 18 /min 03/30/2024 Oximetry 97 % 03/30/2024 Blood pressure diastolic 101 mm Hg 03/30/2024 Weight-kg 133.79 kg 03/30/2024 Height 71 in 03/30/2024 Blood pressure systolic 140 mm Hg 03/30/2024 Weight 295 lbs 03/30/2024 BMI 41.14 kg/m2 03/30/2024 Procedures Procedure Date Ordered Date Performed Result Body Sit e *[facility] Antigen Covid-19 Testing 03/30/2024 03/30/2024 Ne gative Encounters Encounter Location Date Provider Diagnosis [facility] [address] [place] [id number] 03/30/2024 Vincent Osorio Chest congestion R09 .89 ; Cough R05.9 ; Influenza A J10.1 and Acute costochondritis M94.0 Assessments Encounter Date Diagnosis (ICD Code) Assessment Notes Treatment Notes Treatment Clinical Notes Section Notes 03/30/2024 Chest congestion (ICD-10 - R09.89) A cough is your body's response to something that bothers your throat or airways. Many things can cause a cough. You might cough because of a cold or the flu, bronchitis, or asthma. Smoking, postnasal drip, allergies, and stomach acid that backs up into your throat also can cause coughs. A cough is a symptom, not a disease. Most coughs stop when the cause, such as a cold, goes away. Drink lots of water and other fluids. Honey or lemon juice in hot water or tea may ease a dry cough. Prop up your head on pillows to help you breathe and ease a dry cough. Try cough drops or hard candy to soothe a dry or sore throat. Do not smoke. Avoid secondhand smoke. If you need help quitting, talk to your doctor about stop-smoking programs and medicines. These can increase your chances of quitting for good. 03/30/2024 Cough (ICD-10 - R05.9) a. Over the counter cough syrups (eg Robitussin DM, Delsym) may be used to treat minor cough for patients 4 yo and older. Cough drops and lozenges may also help. b. If Tessalon Perles (Benzonatate) are ordered, these should be swollowed whole - the medicine inside these capsules can cause excessive numbing of the throat such that there is increased risk of aspirating. This med should be kept out of the reach of children and pets. c. Narcotic syrups, if prescribed by the provider, will cause drowsiness and care should be taken to avoid driving and use of hazardous equipment for the next 12 hours after using. They may also cause constipation, so use stool softeners or Miralax otc if needed. 03/30/2024 Influenza A (ICD-10 - J10.1) Influenza (sometimes called 'the flu') is a highly contagious virus that causes widespread illness every year. Immunization and practicing prevention measures are the best ways we can protect against the flu and reduce the number of influenza infections and deaths. Flu immunization is recommended for everyone from 6 months of age who want to protect themselves from the flu and its complications. Some people are more at risk of complications from the flu and are eligible for free vaccination. People who work or live with people who are at risk of serious complications should also be immunized to avoid spreading the flu. The flu vaccine cannot give you the flu because it does not contain any live virus. You can receive your flu vaccine at the same time as other vaccines including COVID-19 vaccine. 03/30/2024 Acute costochondritis (ICD-10 - M94.0) This is an inflammation where the cartilage of the rib meets the bone of the sternum. It is often seen in excessive use of arms such as aggressive exercising, push ups, weight lifting. Sometimes viral infections may trigger this response as well. Treatment consists of frequent warm compresses and use of nsaids. Indocin (Indomethacin) seems to give the best relief among all the nsaids. It is recommended you keep arm use to a minimum while this is healing. Continuing frequent pushing, pulling or lifting will keep this condition aggrevated and will make recovery much slower. This often takes several weeks to resolve, longer if you cannot rest these muscles. Plan Of Treatment Pending Test Test Name Order Date Influenza A 03/30/2024 Influenza B 03/30/2024 *Veritas Antigen Covid-19 Testing 2024 Insurance Providers Payer Name Payer Address Payer Phone Subscriber Number Group Number Insured Name Patient Relationship to Insured Coverage Start Date Coverage End Date [employer] [address] [place] [phone] [id number] Fabrizio Coombs Self - patient is the insured 2024 Medical (General) History Surgical History Surgery Date(Month/Year) Hospitalization History Reason Date(Month/Year)
[2025-02-03] MEDS: Lidocaine HCl 1 % MPF 5 ML VIAL INFILTRATI (11:06)
--- NOTE | 2025-02-03 11:07 | PC.NURSE ---
lido given by provider
[2025-02-03 12:22] VITALS: BP 160/99; PULSE 69; RESP 16; TEMP 36.2; O2SAT 96
== END 2025-02-03 12:23 | disposition home or self-care (01) ==
PROVIDERS: Emergency Provider Emergency Medicine
DX: S61.217A Laceration without foreign body of left little finger without damage to nail, initial encounter (principal); M79.642 Pain in left hand; W23.1XXA Caught, crushed, jammed, or pinched between stationary objects, initial encounter; Y93.89 Activity, other specified; Y92.89 Other specified places as the place of occurrence of the external cause; Y99.0 Civilian activity done for income or pay
CPT/HCPCS: 12001; 73140; 96374; 96375; 99283; 99284; J0690; J2003; J2270; J2405

== ENCOUNTER → 2025-02-03 09:06 | Outpatient (BNV) | payer OTHER, SELFPAY | PROVIDERS: Emergency Provider Emergency Medicine; Visit Provider Radiology Diagnostic Radiology | DX: S61.210A Laceration without foreign body of right index finger without damage to nail, initial encounter (principal) | CPT/HCPCS: 73140 ==

== ENCOUNTER 2025-02-06 11:43 | Outpatient (REF) | payer OTHER, SELFPAY ==
--- NOTE | ~2025-02-06 | XR_ITS ---
EXAMINATION: XR HAND 3 OR MORE VIEWS LEFT HISTORY: M79.642 - Pain in left hand COMPARISON: Comparison is made with the prior examination dated 02/03/2025. FINDINGS: Five views of the left hand are submitted. Osseous mineralization is normal. Again seen is a mildly displaced transverse fracture of the base of the distal phalanx of the 5th finger. No additional fracture is seen. There is no dislocation. The joint spaces are preserved. The soft tissues are unremarkable. XR/XR hand LT min 3V IMPRESSION: Mildly displaced transverse fracture of the base of the distal phalanx of the 5th finger. Electronically signed by: John Renee MD 02/06/2025 03:40 PM EST
--- OUTSIDE RECORDS SUMMARY | 2025-02-08 15:29 | XMS_ITS | Continuity of Care Document ---
Author Organization [facility] Address [address] [place] [address] Phone Problems Prediabetes Onset:08-Feb-2020 21:33 Elevated liver [...] Start:14-Apr-2004 Status:Complete Comments:bid Vital Signs 09-May-2020 9:05 BP Diastolic 80 mm[Hg] O2 SAT 97 % Respiratory Rate 16 /min BMI 28.4 kg/m2 BP Systolic 140 mm[Hg] Temperature 97.34 f Pulse 82 /min Height 76 in Weight 233.12 lb 08-Feb-2020 8:51 Temperature 97.52 f BMI 33.7 kg/m2 Pulse 73 /min BP Systolic 120 mm[Hg] Respiratory Rate 16 /min O2 SAT 95 % BP Diastolic 90 mm[Hg] Height 76 in Weight 276.5 lb 24-Jan-2020 12:51 Temperature 97.7 f O2 SAT 97 % BP Diastolic 96 mm[Hg] Respiratory Rate 16 /min BP Systolic 140 mm[Hg] BMI 34.4 kg/m2 Pulse 90 /min Height 76 in Weight 283 lb 25-Jul-2019 10:49 BP Systolic 160 mm[Hg] BP Diastolic 106 mm[Hg] Weight 240 lb
--- OUTSIDE RECORDS SUMMARY | 2025-02-08 15:29 | XMS_ITS | Patient Health Record ---
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
--- OUTSIDE RECORDS SUMMARY | 2025-02-08 15:29 | XMS_ITS | Data Portability ---
Author Organization [place] [facility] Address [address] [place] [address] Assessment Encounter Date Assessment Date Assessment LastModified [...] HbA1c (hemoglob in A1c), blood 2020 021 [facility], [address] [facility], [address], [place], [address], 14:53:20 CMP, serum or plasma 2020 021 [facility], [address], [address], [place], [address], 1 14:18:12 CMP, serum or plasma 2019 020 [facility], [address], [address], [place], [address], 0 14:18:52 T4, free, serum 2019 020 [facility], [address], [address], [place], [address], 0 14:53:21 TSH, serum or plasma 2019 020 [facility], [address], [address], [place], [address], 0 14:53:22 CBC w/ diff 2019 020 [facility], [address], [address], [place], [address], 0 17:08:16 lipid panel, serum 2019 020 [facility], [address], [address], [place], [place], [address], 0 14:18:53 testoster one, total, serum 2019 020 [facility], [address], [address], [place], [address], 0 14:53:23 HbA1c (hemoglob in A1c), blood 2019 020 [facility], [address], [address], [place], [address], 0 17:44:10 Referral None recorded. Procedures None recorded. Surgeries None recorded. Imaging None recorded. Medication Orders Bystolic 5 mg tablet 2019 020 [id number], [address], [place], [place], [id number], 0 21:34:03 Patient TargetsNo targets recorded. Patient Instructions Encounter Date Encounter Id Patient Instructions Last Modified By Organization Details Last Modified Time 07/25/2019 [id number] bruises: care instructions Not available 07/25/2019 12:15:29 today we discuss ed oral anti-inflammatory weightbearing as tolerated rest ice compression and elevation followed back up with me in 2 weeks of continued pain for repeat x-rays. Not available 07/25/2019 12:15:21 01/24/2020 [id number] palpitations: ca re instructions Not available 01/24/2020 15:03:06 high blood pressure: care instructions Not available 01/24/2020 15:08:35 learning about high blood pressure Not available 01/24/2020 15:08:36 hypoglycemia: ca re instructions Not available 01/24/2020 15:03:07 02/08/2020 [id number] high blood pressure: care instructions [email or web address] Not available 02/08/2020 21:33:55 learning about high blood pressure [email or web address] Not available 02/08/2020 21:33:55 body mass index: care instructions [email or web address] Not available 02/08/2020 21:33:55 learning about healthy weight [email or web address] Not available 02/08/2020 21:33:55 05/09/2020 [id number] high blood pressure: care instructions [email or web address] Not [...] .8 Not Available [facility] [address] [facility] [address], [place], [address], 01/24/2020 17:08:16 01/24/20 20 01/24/2020 CBC w/ diff RBC 5.00 M/uL 4.70-6 .10 Not Available [facility] [address] [facility] [address], [place], [address], 01/24/2020 17:08:16 01/24/20 20 01/24/2020 CBC w/ diff HGB 15.7 g/dL 14.0-1 8.0 Not Available [facility] [address] [facility] [address], [place], [address], 01/24/2020 17:08:16 01/24/20 20 01/24/2020 CBC w/ diff HCT 46.4 % 42.0-5 2.0 Not Available [facility] [address] [facility] [address], [place], [address], 01/24/2020 17:08:16 01/24/20 20 01/24/2020 CBC w/ diff MCV 93 fL 80-94 Not Available [facility] [address] [facility] [address], [place], [address], 01/24/2020 17:08:16 01/24/20 20 01/24/2020 CBC w/ diff MCH 31.4 pg 27.0-3 1.0 high Not Available [facility] [address] [facility] [address], [place], [address], 01/24/2020 17:08:16 01/24/20 20 01/24/2020 CBC w/ diff MCHC 33.9 g/dL 32.0-3 6.0 Not Available [facility] [address] [facility] [address], [place], [address], 01/24/2020 17:08:16 01/24/20 20 01/24/2020 CBC w/ diff plt 189 K/uL 130-40 0 Not Available [facility] [address], [place], [address], 01/24/2020 17:08:16 01/24/20 20 01/24/2020 CBC w/ diff RDW 13.8 % 11.5-1 6.0 Not Available [facility] [address], [place], [address], 01/24/2020 17:08:16 01/24/20 20 01/24/2020 CBC w/ diff _MPV 8.9 Not Available [facility] [address] [facility], [place], [address], 01/24/2020 17:08:16 01/24/20 20 01/24/2020 CBC w/ diff neut % 61.2 % 43.0-7 5.0 Not Available [facility] [address], [place], [address], 01/24/2020 17:08:16 01/24/20 20 01/24/2020 CBC w/ diff lym % 26.9 % 20.5-5 1.1 Not Available [facility] [address], [place], [address], 01/24/2020 17:08:16 01/24/20 20 01/24/2020 CBC w/ diff mono % 8.1 % 1.7-10 .0 Not Available [facility] [address], [place], [address], 01/24/2020 17:08:16 01/24/20 20 01/24/2020 CBC w/ diff eos % 2.1 % 0.0-7. 0 Not Available [facility] [address] [facility] [address], [place], [address], 01/24/2020 17:08:16 01/24/20 20 01/24/2020 CBC w/ diff baso % 1.7 % 0.0-2. 0 Not Available [facility] [address] [facility] [address], [place], [address], 01/24/2020 17:08:16 01/24/20 20 01/24/2020 CBC w/ diff neut # 3.7 K/uL 1.4-6. 5 Not Available [facility] [address] [facility] [address], [place], [address], 01/24/2020 17:08:16 01/24/20 20 01/24/2020 CBC w/ diff lym # 1.6 K/uL 1.3-3. 4 Not Available [facility] [address] [facility] [address], [place], [address], 01/24/2020 17:08:16 01/24/20 20 01/24/2020 CBC w/ diff mono # 0.5 K/uL 0.0-0. 8 Not Available [facility] [address] [facility] [address], [place], [address], 01/24/2020 17:08:16 01/24/20 20 01/24/2020 CBC w/ diff eos # 0.1 K/uL 0.0-0. 7 Not Available [facility] [address] [facility] [address], [place], [address], 01/24/2020 17:08:16 01/24/20 20 01/24/2020 CBC w/ diff baso # 0.1 K/uL 0.0-0. 2 Not Available [facility] [address] [facility] [address], [place], [address], 01/24/2020 17:08:16 01/24/20 20 01/24/2020 HbA1c (hemo globi n A1c), blood Hb A1C 6.3 % 4.2-5. 8 high Not Available [facility] [address] [facility] [address], [place], [address], 01/24/2020 17:44:10 01/24/20 20 01/25/2020 CMP, serum or plasm a glucose 76 mg/dL 74-100 IMPAI RED FASTI NG GLUCO SE - >100- 125 IMPAI RED 2HR POST PRAND IAL - >140 IMPAI RED RANDO M GLUCO SE - >140- 200 Not Available [facility] [address] [facility] [address], [place], [address], 01/25/2020 14:18:52 01/24/20 20 01/25/2020 CMP, serum or plasm a BUN 11 mg/dL 9-20 Not Available [facility] [address] [facility] [address], [place], [address], 01/25/2020 14:18:52 01/24/20 20 01/25/2020 CMP, serum or plasm a crea 0.8 mg/dL 0.7-1. 3 Not Available [facility] [address] [facility] [address], [place], [address], 01/25/2020 14:18:52 01/24/20 20 01/25/2020 CMP, serum or plasm a Na 140 mmol/ L 137-14 5 Not Available [facility] [address] [facility] [address], [place], [address], 01/25/2020 14:18:52 01/24/20 20 01/25/2020 CMP, serum or plasm a K 5.4 mmol/ L 3.5-5. 1 high Not Available [facility] [address] [facility] [address], [place], [address], 01/25/2020 14:18:52 01/24/20 20 01/25/2020 CMP, serum or plasm a cL 101 mmol/ L 98-107 Not Available [facility] [address] [facility] [address], [place], [address], 01/25/2020 14:18:52 01/24/20 20 01/25/2020 CMP, serum or plasm a TCO2 26 mmol/ L 22-33 Not Available [facility] [address] [facility] [address], [place], [address], 01/25/2020 14:18:52 01/24/2001/25/2020 CMP, serum or plasm a anion gap 18.4 mmol/ L 10.0-2 0.0 Not Available [facility] [address] [facility] [address], [place], [address], 01/25/2020 14:18:52 01/24/20 20 01/25/2020 CMP, serum or plasm a calcium 10.1 mg/dL 8.4-10 .2 Not Available [facility] [address] [facility] [address], [place], [address], 01/25/2020 14:18:52 01/24/2001/25/2020 CMP, serum or plasm a total protein 7.4 g/dL 6.3-8. 2 Not Available [facility] [address] [facility] [address], [place], [address], 01/25/2020 14:18:52 01/24/20 20 01/25/2020 CMP, serum or plasm a albumin 4.7 g/dL 3.5-5. 0 Not Available [facility] [address] [facility] [address], [place], [address], 01/25/2020 14:18:52 01/24/2001/25/2020 CMP, serum or plasm a globulin 2.7 g/dL 2.2-4. 2 Not Available [facility] [address] [facility] [address], [place], [address], 01/25/2020 14:18:52 01/24/20 20 01/25/2020 CMP, serum or plasm a A/G ratio 1.7 calc 1.0-2. 0 Not Available [facility] [address] [facility] [address], [place], [address], 01/25/2020 14:18:52 01/24/20 20 01/25/2020 CMP, serum or plasm a ALT(SGPT) 52 IU/L 0-50 high NOTE: OF 03/01 , DUE TO A REAGE NT [facility] BY [facility] ACT[facility] ER, THE REFER ENCE RANGE S FOR ALT HAVE [facility] ED FOR MALE AND FEMAL E. Not Available [facility] [address] [facility] [address], [place], [address], 01/25/2020 14:18:52 01/24/20 20 01/25/2020 CMP, serum or plasm a AST(SGOT) 39 IU/L 15-46 Not Available [facility] [address] [facility] [address], [place], [address], 01/25/2020 14:18:52 01/24/2001/25/2020 CMP, serum or plasm a alk phos 76 IU/L 38-126 Not Available [facility] [address] [facility] [address], [place], [address], 01/25/2020 14:18:52 01/24/20 20 01/25/2020 CMP, serum [...] * Not Available [facility] [address] [facility] [address], [place], [address], 01/25/2020 14:18:52 01/24/20 20 01/25/2020 lipid panel , serum cholesterol 151 mg/dL 112-20 0 Note: Refer ence Range s Barillas ed 05/11 Not Available [facility] [address] [facility] [address], [place], [address], 01/25/2020 14:18:53 01/24/20 20 01/25/2020 lipid panel , serum triglyceride 113 mg/dL 0-150 Not Available [facility] [address] [facility] [address], [place], [address], 01/25/2020 14:18:53 01/24/20 20 01/25/2020 lipid panel , serum HDL direct 37 mg/dL 40-60 low Not Available [facility] [address] [facility] [address], [place], [address], 01/25/2020 14:18:53 01/24/20 20 01/25/2020 lipid panel , serum VLDL 23 mg/dL 6-40 Not Available [facility] [address] [facility] [address], [place], [address], 01/25/2020 14:18:53 01/24/20 20 01/25/2020 lipid panel [...] n. Not Available [facility] [address] [facility] [address], [place], [address], 01/25/2020 14:18:53 01/24/20 20 01/25/2020 lipid panel , serum chol/HDL ratio 4.1 calc 0.0-4. 0 high Not Available [facility] [address] [facility] [address], [place], [address], 01/25/2020 14:18:53 01/24/20 20 01/25/2020 GFR, estim [...] . Not Available [facility] [address], [place], [address], 01/25/2020 14:18:54 01/24/20 20 01/25/2020 T4, free, serum free T4 1.47 NG/dL 0.78-2 .19 This free t4 was evalu ated using Ortho Diagn ositi cs ECI Micro welll Vitro s 5600 techn ology . Not Available [facility] [address] [facility] [address], [place], [address], 01/25/2020 14:53:21 01/24/20 20 01/25/2020 TSH, serum [...] . Not Available [facility] [address] [facility] [address], [place], [address], 01/25/2020 14:53:22 01/24/20 20 01/25/2020 testo stero ne, total , serum testosterone 577 NG/dL 132-81 3 Not Available [facility] [address] [facility] [address], [place], [address], 01/25/2020 14:53:23 05/10/19 21 05/09/2020 CMP, serum or plasm a glucose 105 mg/dL 74-100 high IMPAI RED FASTI NG GLUCO SE - >100- 125 IMPAI RED 2HR POST PRAND IAL - >140 IMPAI RED RANDO M GLUCO SE - >140- 200 Not Available [facility] [address] [facility] [address], [place], [address], 05/09/2020 14:18:12 05/10/19 21 05/09/2020 CMP, serum or plasm a BUN 20 mg/dL 9-20 Not Available [facility] [address] [facility] [address], [place], [address], 05/09/2020 14:18:12 05/10/19 21 05/09/2020 CMP, serum or plasm a crea 0.9 mg/dL 0.7-1. 3 Not Available [facility] [address] [facility] [address], [place], [address], 05/09/2020 14:18:12 05/10/19 21 05/09/2020 CMP, serum or plasm a Na 140 mmol/ L 137-14 5 Not Available [facility] [address] [facility] [address], [place], [address], 05/09/2020 14:18:12 05/10/19 21 05/09/2020 CMP, serum or plasm a K 5.2 mmol/ L 3.5-5. 1 high Not Available [facility] [address] [facility] [address], [place], [address], 05/09/2020 14:18:12 05/10/19 21 05/09/2020 CMP, serum or plasm a cL 102 mmol/ L 98-107 Not Available [facility] [address] [facility] [address], [place], [address], 05/09/2020 14:18:12 05/10/19 21 05/09/2020 CMP, serum or plasm a TCO2 30 mmol/ L 22-33 Not Available [facility] [address] [facility] [address], [place], [address], 05/09/2020 14:18:12 05/10/19 21 05/09/2020 CMP, serum or plasm a anion gap 13.2 mmol/ L 10.0-2 0.0 Not Available [facility] [address] [facility] [address], [place], [address], 05/09/2020 14:18:12 05/10/19 21 05/09/2020 CMP, serum or plasm a calcium 9.9 mg/dL 8.4-10 .2 Not Available [facility] [address] [facility] [address], [place], [address], 05/09/2020 14:18:12 05/10/19 21 05/09/2020 CMP, serum or plasm a total protein 6.9 g/dL 6.3-8. 2 Ortho Diagn ositi cs has deter mined Eltro mbopa g inter feres sligh tly with Vitro s TP resul ts, [facility] Eltro mbopa g is a bone marro w stimu lant used to treat throm bocyt openi a and aplas tic anemi a. * Not Available [facility] [address] [facility] [address], [place], [address], 05/09/2020 14:18:12 05/10/19 21 05/09/2020 CMP, serum or plasm a albumin 4.5 g/dL 3.5-5. 0 Not Available [facility] [address] [facility] [address], [place], [address], 05/09/2020 14:18:12 05/10/19 21 05/09/2020 CMP, serum or plasm a globulin 2.4 g/dL 2.2-4. 2 Not Available [facility] [address] [facility] [address], [place], [address], 05/09/2020 14:18:12 05/10/19 21 05/09/2020 CMP, serum or plasm a A/G ratio 1.9 calc 1.0-2. 0 Not Available [facility] [address] [facility] [address], [place], [address], 05/09/2020 14:18:12 05/10/19 21 05/09/2020 CMP, serum or plasm a ALT(SGPT) 21 IU/L 0-50 NOTE: OF 03/01 , DUE TO A REAGE NT [facility] E BY [facility] ACTUR ER, THE REFER ENCE RANGE S FOR ALT HAVE [facility] ED FOR MALE AND FEMAL E. Not Available [facility] [address] [facility] [address], [place], [address], 05/09/2020 14:18:12 05/10/19 21 05/09/2020 CMP, serum or plasm a AST(SGOT) 27 IU/L 15-46 Not Available [facility] [address] [facility] [address], [place], [address], 05/09/2020 14:18:12 05/10/19 21 05/09/2020 CMP, serum or plasm a alk phos 81 IU/L 38-126 Not Available [facility] [address] [facility] [address], [place], [address], 05/09/2020 14:18:12 05/10/19 21 05/09/2020 CMP, serum [...] aplas tic anemi a. * Not Available [facility] [address] [facility] [address], [place], [address], 05/09/2020 14:18:12 05/10/19 21 05/09/2020 GFR, estim ated (eGFR ), serum eGFR 90.8 mL/mi n >60.0 Note: The GFR resul t is based on a patie nt of the Cauca tom Race. If the patie nt is Afric an anna Hernandes ply the resul t value by 1.21 to obtai n the accur ate GFR value . Not Available [facility] [address] [facility] [address], [place], [address], 05/09/2020 14:18:13 05/10/19 21 05/09/2020 HbA1c (hemo globi n A1c), blood Hb A1C 5.6 % 4.2-5. 8 Not Available [facility] [address] [facility] [address], [place], [address], 05/09/2020 14:53:20 01/24/20 20 01/24/2020 elect harvinder bonilla am No observ ation record ed. BARCODE Not Available 2019 16:18:38 Result Notes None recorded. Problems Name Problem SNOMED Code Status Onset Date Resolution Date Notes Provider Name and Address Organization Details Recorded Time Essential hypertension 05258370 Active 2019 Valente Lua [place], [place] - [facility] 0 15:03:21 Body mass index 30+ - obesity 205969602 Active 2019 Chuyita Izquierdo [place], [place] - [facility] 0 21:33:25 Liver enzymes level above reference range 799640355 Active 2019 Chuyita Izquierdo [place], [place] - [facility] 0 21:33:26 Prediabetes 903761596 Active 2019 Chuyita Izquierdo eryn [facility] 0 21:33:27 Problem Notes None recorded. Procedures Surgical History Date Name Laterality Status Provider Name and Address Organization Details Recorded Time EKG completed Valente Lua [facility] 01/24/2020 14:41:15 Xray 3 views RIGHT FOOT completed Bert Granados [facility] 07/25/2019 12:14:53 cholecystectomy completed Dalila Wen [facility] 01/24/2020 13:14:42 Imaging Results None recorded. [...] Updated DateTime 1 193.04 cm 28.4 kg/m2 966996. 72 g 82 /min 16 /min 97.3 [degF] 97 % 140/80 mm[Hg] Isela Kilgore [facility] 1 09:20:20 Date Recorded Body weight Systolic And Diastolic Provider Name and Address Organization Details Last Updated DateTime 07/25/2019 954466.17 g 160/106 mm[Hg] Lauryn Giron [facility] 07/25/2019 11:01:36 Date Recorded Body height Body mass index (BMI) Body weight Heart rate Oxygen saturation Respiratory rate Body temperature Systolic And Diastolic Provider Name and Address Organization Details Last Updated DateTime 0 193.04 cm 34.4 kg/m2 565331. 64 g 90 /min 97 % 16 /min 97.7 [degF] 140/96 mm[Hg] Dalila Wen [facility] 0 13:12:49 Date Recorded Body height Body mass index (BMI) Body weight Heart rate Respiratory rate Body temperature Oxygen saturation Systolic And Diastolic Provider Name and Address Organization Details Last Updated DateTime 0 193.04 cm 33.7 kg/m2 169220. 29 g 73 /min 16 /min 97.5 [degF] 95 % 120/90 mm[Hg] Isela Kilgore [place] - [facility] 0 08:59:07 Social History Question Answer Notes LastModified by [facility] Details LastModified Time Tobacco Smoking Status Current Every Day Smoker Lauryn cerna [place] - [facility] 07/25/2019 11:02:12 What Is Your Level Of Caffeine Consumption? Heavy [email or web address] Information not available 07/25/2019 In The 14 [...] not available 05/09/2020 Education 4 Year College [email or web address] Information not available 07/25/2019 Marital Status Single [email or web address] Informatio n not available 07/25/2019 What Was The Date Of Your Most Recent Tobacco Screening? 01/24/2020 Information not available 05/09/2020 How Much Tobacco Do You Smoke? 1 PPW Information not available 07/25/2019 Sex: Unknown Functional Status Question Answer Note LastModified by [facility] Details LastModified Time What is your level of alcohol consumption? 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 Family History Relationship Description Onset Age of this Age Resolved Age Notes LastModified by Organization Details LastModified Time Father Hypertensive disorder [email or web address] Not available 03/2019 13:13:40 Father Coronary arterioscler osis [email or web address] Not available 03/2019 13:14:12 Father Myocardial infarction [email or web address] Not available 05/09 09:05:51 Mother Hypertensive disorder [email or web address] Not available 03/2019 13:13:45 Mother Malignant neoplasm of colon [email or web address] Not available 2020 09:05:51 Medical History No medical history recorded. Past Encounters Encounter ID Performer Location Encounter Start Date Encounter Closed Date Diagnosis/Indication Diagnosis SNOMED-CT Code Diagnosis ICD10 Code Diagnosis IMO Codes Diagnosis Note [id number] Costa Granados DPM [facility] [address] [facility], [address] [address] 07/25/2019 10:44:13 07/25/2019 11:21:45 Contusion of foot 33425137 S90.31XA Antalgic gait 40005938 R 26.89 Walking disability 94533 8008 R26.2 [id number] Valente Lua M.D. [facility] [address] [facility], [address] [address] 01/24/2020 12:50:48 01/24/2020 15:10:28 Atypical chest pain 657295873 R07.89 Palpitations 86491015 R0 0.2 Adult heal th examination 612007092 Z00.00 Hypoglycemia 239625426 E 16.2 Fatigue 50044105 R53.83 Essential hypertension 99680687 I10 trial of bystolic 5 mg daily and f/u to discuss. [id number] Valente Lua M.D. [facility] [address] [facility], [address] [address] 02/08/2020 08:50:17 02/09/2020 14:56:02 Essential hypertension 50674389 I10 continue bystolic 5 mg. Blood pressure well controlled on current medication regimen. Educated to monitor blood pressure at home and call office if BP consistent ly >140/90. Prediabetes 657729504 R7 3.03 a1c 6.3%. declines medication today. would like to try diet and lifestyle first. will f/u in 3 months for recheck Liver enzy mes level above reference range 804156748 R74.8 counseled on low-fat diet and weight loss. will recheck in 3 months Body mass index 30+ - obesity 011724226 Z68.33 Discussed lifestyle adjustment s such as increasing intake of fiber and following a heart healthy diet plan (low-fat, low-carb, and low-sodium ). Instructed to eat smaller, more frequent meals. Encouraged to increase amount of physical activity as tolerated, with goal being to exercise daily for a minimum of thirty minutes. [id number] Valente Lua M.D. [facility] [address] [facility], [address] [place] [address] 05/09/2020 09:01:25 05/14/2020 07:21:20 Essential hypertension 50583896 I10 bp stable. no longer taking bystolic. continue to work on lifestyle and continue weight loss efforts. Prediabetes 854329647 R7 3.03 last a1c was 6.3%. he is down 50 lbs. has been working on lifestyle changes including diet and running daily. will recheck today Liver enzy mes level above reference range 460187616 R74.8 continue weight loss efforts. 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 Valente cerna [facility] 01/24/2020 15:09:03 02/08/2020 text/html 02/08/20 pt [...] [facility] 02/08/2020 21:35:15 05/09/2020 text/html 05/09/20 Pt [...] due for recheck today. MELVINA Garcia - [facility] [id number] 05/09/2020 20:38:[id number]
== END 2025-02-06 11:44 | disposition home or self-care (01) ==
LOC: HO.HOSX 11:43
PROVIDERS: Visit Provider Orthopaedic Surgery
DX: S62.637B Displaced fracture of distal phalanx of left little finger, initial encounter for open fracture (principal); W23.0XXA Caught, crushed, jammed, or pinched between moving objects, initial encounter; Y92.821 Forest as the place of occurrence of the external cause; Y93.9 Activity, unspecified; Y99.8 Other external cause status
CPT/HCPCS: 73130

== ENCOUNTER 2025-02-06 13:48 | Outpatient (AMB) | payer OTHER, SELFPAY ==
[2025-02-06 14:15] VITALS: BMI 37.9
--- NOTE | 2025-02-06 14:15 | MHC.OFFVIS ---
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 Patient reports that while he was at work his finger got caught between a wrench in a metal cart. States he was seen at [facility] [place] [place] ED same day where he was cleaned up, xrays were taken, he also received about 5-6 stitches. Today states he has soreness at the tip of his DIP and was told not to bend at his DIP due to possible fracture. Allergies No Known Allergies Allergy (Verified 02/06/25 14:19) HPI HPI FC-left 5th digit laceration-DOI 02/03/25: Details: Fabrizio is a 49 year old right hand dominant man who presents for a left small finger open fracture/laceration, from a crush injury with tools at work, DOI: 02/03/25. he caught his finger between a wrench and a metal cart. 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 He was seen in the ED, cleaned, and sutured. He has been on oral antibiotics, Keflex. He complains of pain and some diminished sensation in his small finger. 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 [employer] All systems reviewed & are unremarkable except as noted in HPI and below Physical Exam Vital Signs: BMI result Body Mass Index 37.9 Const General: cooperative, healthy appearing and no acute distress Orientation/consciousness: patient oriented x3 HEENT Head: Yes normocephalic and Yes atraumatic Eyes EOM: EOMs intact bilaterally Resp Effort & Inspection: normal respiratory effort and able to speak in complete sentences Cardio Jugular venous distension: no JVD Skin General skin exam: turgor normal Rashes: no rashes Neuro General: patient oriented x3 Extrem Other: Evaluation of Left Upper Extremity: The patient is alert, oriented, and in no acute distress Neuro: Median, Ulnar, Radial nerves motor and sensory intact and sensation is normal to the tips of all digits Vascular: Cap refill brisk ROM: General: No evidence of infection. Small finger near amputation Small finger dorsal laceration proximal to nailbed, sutured closed Some swelling and ecchymosis in the finger Some PIP joint stiffness from being in a splint Radiographs: 3 views of the Left hand were taken and viewed by me today in clinic. They show a near amputation through the small finger distal phalanx body, transverse, with satisfactory fracture alignment. He has ~70% apposition and a small amount of volar translation on the lateral view. Anatomic alignment on the PA view Psych Appearance: grossly normal Affect: normal affect Attitude: cooperative Assessment & Plan Assessment & Plan (1) Open fracture of distal phalanx of left little finger: Code(s): S62.637B - Displaced fracture of distal phalanx of left little finger, initial encounter for open fracture Category: Medical Plan Assessment & Plan: 1. Left small finger distal phalanx body fracture, open near amputation injury DOI: 02/03/25 cleaned & sutured in ED: 02/03/25 This is a workplace injury I educated him about this condition I discussed operative and non-operative treatment options This will be managed conservatively, though we did talk about risks of displacement or infection which could then require surgery. I explained the signs and symptoms of infection He was fitted for a new finger spica splint, limited DIP joint ROM but allowing for PIP & MCP joint ROM I discussed activity modifications, he is to lift nothing heavier than a cellphone for the next 4 weeks. He will perform gentle ROM exercises at home He can begin wound care on Wednesday. He knows he needs to finish all of his oral antibiotics. He is on Keflex 4 times a day. He is returning home to [place], I recommend he follow up in 1-2 weeks with a hand surgeon back home. No later than 2 weeks, and he will need new x-rays at that time. Scribed for Radha Harden MD by Vinay Sen, biomedical equipment support specialist, on 02/06/25 at 2:30 PM, EST. Orders: Orders XR hand LT min 3V Today M79.642 - Pain in left hand Medications: Discontinued morphine Partial Fill upon patient request. Discontinued Reason: Patient Completed Course 15 mg PO Q6H PRN 7 tabs 0RF severe pain (scale score 7-10) ondansetron Discontinued Reason: Patient Completed Course 4 mg PO Q6H PRN 10 tabs 0RF nausea and vomiting Coding Level of Care Code New Pt Level 4 (59849) Diagnoses Open fracture of distal phalanx of left little finger S62.637B
--- OUTSIDE RECORDS SUMMARY | 2025-02-06 17:59 | XMS_ITS | Data Portability ---
Author Organization [place] - [facility] Address [address] [place] [address] Assessment Encounter Date Assessment Date Assessment LastModified [...] HbA1c (hemoglob in A1c), blood 2020 021 [facility], [address] [facility], [address], [place], [address], 14:53:20 CMP, serum or plasma 2020 021 [facility], [address], [address], [place], [address], 1 14:18:12 CMP, serum or plasma 2019 020 [facility], [address], [address], [place], [address], 0 14:18:52 T4, free, serum 2019 020 [facility], [address], [address], [place], [address], 0 14:53:21 TSH, serum or plasma 2019 020 [facility], [address], [address], [place], [address], 0 14:53:22 CBC w/ diff 2019 020 [facility], [address], [address], [place], [address], 0 17:08:16 lipid panel, serum 2019 020 [facility], [address], [address], [place], [place], [address], 0 14:18:53 testoster one, total, serum 2019 020 [facility], [address], [address], [place], [address], 0 14:53:23 HbA1c (hemoglob in A1c), blood 2019 020 [facility], [address], [address], [place], [address], 0 17:44:10 Referral None recorded. Procedures None recorded. Surgeries None recorded. Imaging None recorded. Medication Orders Bystolic 5 mg tablet 2019 020 INTERFACE [id number], [address], [place], [place], [id number], 0 21:34:03 Patient TargetsNo targets recorded. Patient Instructions Encounter Date Encounter Id Patient Instructions Last Modified By Organization Details Last Modified Time 07/25/2019 [id number] bruises: care instructions Not available 07/25/2019 12:15:29 today we discuss ed oral anti-inflammatory weightbearing as tolerated rest ice compression and elevation followed back up with me in 2 weeks of continued pain for repeat x-rays. Not available 07/25/2019 12:15:21 01/24/2020 [id number] palpitations: ca re instructions Not available 01/24/2020 15:03:06 high blood pressure: care instructions Not available 01/24/2020 15:08:35 learning about high blood pressure Not available 01/24/2020 15:08:36 hypoglycemia: ca re instructions Not available 01/24/2020 15:03:07 02/08/2020 [id number] high blood pressure: care instructions [email or web address] Not available 02/08/2020 21:33:55 learning about high blood pressure [email or web address] Not available 02/08/2020 21:33:55 body mass index: care instructions [email or web address] Not available 02/08/2020 21:33:55 learning about healthy weight [email or web address] Not available 02/08/2020 21:33:55 05/09/2020 [id number] high blood pressure: care instructions [email or web address] Not [...] .8 Not Available [facility] [address] [facility] [address], [place], [address], 01/24/2020 17:08:16 01/24/20 20 01/24/2020 CBC w/ diff RBC 5.00 M/uL 4.70-6 .10 Not Available [facility] [address] [facility] [address], [place], [address], 01/24/2020 17:08:16 01/24/20 20 01/24/2020 CBC w/ diff HGB 15.7 g/dL 14.0-1 8.0 Not Available [facility] [address] [facility] [address], [place], [address], 01/24/2020 17:08:16 01/24/20 20 01/24/2020 CBC w/ diff HCT 46.4 % 42.0-5 2.0 Not Available [facility] [address] [facility] [address], [place], [address], 01/24/2020 17:08:16 01/24/20 20 01/24/2020 CBC w/ diff MCV 93 fL 80-94 Not Available [facility] [address] [facility] [address], [place], [address], 01/24/2020 17:08:16 01/24/20 20 01/24/2020 CBC w/ diff MCH 31.4 pg 27.0-3 1.0 high Not Available [facility] [address] [facility] [address], [place], [address], 01/24/2020 17:08:16 01/24/20 20 01/24/2020 CBC w/ diff MCHC 33.9 g/dL 32.0-3 6.0 Not Available [facility] [address] [facility] [address], [place], [address], 01/24/2020 17:08:16 01/24/20 20 01/24/2020 CBC w/ diff plt 189 K/uL 130-40 0 Not Available [facility] [address], [place], [address], 01/24/2020 17:08:16 01/24/20 20 01/24/2020 CBC w/ diff RDW 13.8 % 11.5-1 6.0 Not Available [facility] [address], [place], [address], 01/24/2020 17:08:16 01/24/20 20 01/24/2020 CBC w/ diff _MPV 8.9 Not Available [facility] [address] [facility] [address], [place], [address], 01/24/2020 17:08:16 01/24/20 20 01/24/2020 CBC w/ diff neut % 61.2 % 43.0-7 5.0 Not Available [facility] [address], [place], [address], 01/24/2020 17:08:16 01/24/20 20 01/24/2020 CBC w/ diff lym % 26.9 % 20.5-5 1.1 Not Available [facility] [address], [place], [address], 01/24/2020 17:08:16 01/24/20 20 01/24/2020 CBC w/ diff mono % 8.1 % 1.7-10 .0 Not Available [facility] [address], [place], [address], 01/24/2020 17:08:16 01/24/20 20 01/24/2020 CBC w/ diff eos % 2.1 % 0.0-7. 0 Not Available [facility] [address] [facility] [address], [place], [address], 01/24/2020 17:08:16 01/24/20 20 01/24/2020 CBC w/ diff baso % 1.7 % 0.0-2. 0 Not Available [facility] [address] [facility] [address], [place], [address], 01/24/2020 17:08:16 01/24/20 20 01/24/2020 CBC w/ diff neut # 3.7 K/uL 1.4-6. 5 Not Available [facility] [address] [facility] [address], [place], [address], 01/24/2020 17:08:16 01/24/20 20 01/24/2020 CBC w/ diff lym # 1.6 K/uL 1.3-3. 4 Not Available [facility] [address] [facility] [address], [place], [address], 01/24/2020 17:08:16 01/24/20 20 01/24/2020 CBC w/ diff mono # 0.5 K/uL 0.0-0. 8 Not Available [facility] [address] [facility] [address], [place], [address], 01/24/2020 17:08:16 01/24/20 20 01/24/2020 CBC w/ diff eos # 0.1 K/uL 0.0-0. 7 Not Available [facility] [address] [facility] [address], [place], [address], 01/24/2020 17:08:16 01/24/20 20 01/24/2020 CBC w/ diff baso # 0.1 K/uL 0.0-0. 2 Not Available [facility] [address] [facility] [address], [place], [address], 01/24/2020 17:08:16 01/24/20 20 01/24/2020 HbA1c (hemo globi n A1c), blood Hb A1C 6.3 % 4.2-5. 8 high Not Available [facility] [address] [facility] [address], [place], [address], 01/24/2020 17:44:10 01/24/20 20 01/25/2020 CMP, serum or plasm a glucose 76 mg/dL 74-100 IMPAI RED FASTI NG GLUCO SE - >100- 125 IMPAI RED 2HR POST PRAND IAL - >140 IMPAI RED RANDO M GLUCO SE - >140- 200 Not Available [facility] [address] [facility] [address], [place], [address], 01/25/2020 14:18:52 01/24/20 20 01/25/2020 CMP, serum or plasm a BUN 11 mg/dL 9-20 Not Available [facility] [address] [facility] [address], [place], [address], 01/25/2020 14:18:52 01/24/20 20 01/25/2020 CMP, serum or plasm a crea 0.8 mg/dL 0.7-1. 3 Not Available [facility] [address] [facility] [address], [place], [address], 01/25/2020 14:18:52 01/24/20 20 01/25/2020 CMP, serum or plasm a Na 140 mmol/ L 137-14 5 Not Available [facility] [address] [facility] [address], [place], [address], 01/25/2020 14:18:52 01/24/20 20 01/25/2020 CMP, serum or plasm a K 5.4 mmol/ L 3.5-5. 1 high Not Available [facility] [address] [facility] [address], [place], [address], 01/25/2020 14:18:52 01/24/20 20 01/25/2020 CMP, serum or plasm a cL 101 mmol/ L 98-107 Not Available [facility] [address] [facility] [address], [place], [address], 01/25/2020 14:18:52 01/24/20 20 01/25/2020 CMP, serum or plasm a TCO2 26 mmol/ L 22-33 Not Available [facility] [address] [facility] [address], [place], [address], 01/25/2020 14:18:52 01/24/2001/25/2020 CMP, serum or plasm a anion gap 18.4 mmol/ L 10.0-2 0.0 Not Available [facility] [address] [facility] [address], [place], [address], 01/25/2020 14:18:52 01/24/20 20 01/25/2020 CMP, serum or plasm a calcium 10.1 mg/dL 8.4-10 .2 Not Available [facility] [address] [facility] [address], [place], [address], 01/25/2020 14:18:52 01/24/2001/25/2020 CMP, serum or plasm a total protein 7.4 g/dL 6.3-8. 2 Not Available [facility] [address] [facility] [address], [place], [address], 01/25/2020 14:18:52 01/24/20 20 01/25/2020 CMP, serum or plasm a albumin 4.7 g/dL 3.5-5. 0 Not Available [facility] [address] [facility] [address], [place], [address], 01/25/2020 14:18:52 01/24/2001/25/2020 CMP, serum or plasm a globulin 2.7 g/dL 2.2-4. 2 Not Available [facility] [address] [facility] [address], [place], [address], 01/25/2020 14:18:52 01/24/20 20 01/25/2020 CMP, serum or plasm a A/G ratio 1.7 calc 1.0-2. 0 Not Available [facility] [address] [facility] [address], [place], [address], 01/25/2020 14:18:52 01/24/20 20 01/25/2020 CMP, serum or plasm a ALT(SGPT) 52 IU/L 0-50 high NOTE: OF 03/01 , DUE TO A REAGE NT BARILLAS E BY THE [facility] ACT[facility] ER, THE REFER ENCE RANGE S FOR ALT HAVE [facility]ILLAS ED FOR MALE AND FEMAL E. Not Available [facility] [address] [facility] [address], [place], [address], 01/25/2020 14:18:52 01/24/20 20 01/25/2020 CMP, serum or plasm a AST(SGOT) 39 IU/L 15-46 Not Available [facility] [address] [facility] [address], [place], [address], 01/25/2020 14:18:52 01/24/2001/25/2020 CMP, serum or plasm a alk phos 76 IU/L 38-126 Not Available [facility] [address] [facility] [address], [place], [address], 01/25/2020 14:18:52 01/24/20 20 01/25/2020 CMP, serum [...] * Not Available [facility] [address] [facility] [address], [place], [address], 01/25/2020 14:18:52 01/24/20 20 01/25/2020 lipid panel , serum cholesterol 151 mg/dL 112-20 0 Note: Refer ence Range s Barillas ed 05/11 Not Available [facility] [address] [facility] [address], [place], [address], 01/25/2020 14:18:53 01/24/20 20 01/25/2020 lipid panel , serum triglyceride 113 mg/dL 0-150 Not Available [facility] [address] [facility] [address], [place], [address], 01/25/2020 14:18:53 01/24/20 20 01/25/2020 lipid panel , serum HDL direct 37 mg/dL 40-60 low Not Available [facility] [address] [facility] [address], [place], [address], 01/25/2020 14:18:53 01/24/20 20 01/25/2020 lipid panel , serum VLDL 23 mg/dL 6-40 Not Available [facility] [address] [facility] [address], [place], [address], 01/25/2020 14:18:53 01/24/20 20 01/25/2020 lipid panel [...] n. Not Available [facility] [address] [facility] [address], [place], [address], 01/25/2020 14:18:53 01/24/20 20 01/25/2020 lipid panel , serum chol/HDL ratio 4.1 calc 0.0-4. 0 high Not Available [facility] [address] [facility] [address], [place], [address], 01/25/2020 14:18:53 01/24/20 20 01/25/2020 GFR, estim [...] . Not Available [facility] [address], [place], [address], 01/25/2020 14:18:54 01/24/20 20 01/25/2020 T4, free, serum free T4 1.47 NG/dL 0.78-2 .19 This free t4 was evalu ated using Ortho Diagn ositi cs [employer]CI Micro welll Vitro s 5600 techn ology . Not Available [facility] [address] [facility] [address], [place], [address], 01/25/2020 14:53:21 01/24/20 20 01/25/2020 TSH, serum [...] . Not Available [facility] [address] [facility] [address], [place], [address], 01/25/2020 14:53:22 01/24/20 20 01/25/2020 testo stero ne, total , serum testosterone 577 NG/dL 132-81 3 Not Available [facility] [address] [facility] [address], [place], [address], 01/25/2020 14:53:23 05/10/19 21 05/09/2020 CMP, serum or plasm a glucose 105 mg/dL 74-100 high IMPAI RED FASTI NG GLUCO SE - >100- 125 IMPAI RED 2HR POST PRAND IAL - >140 IMPAI RED RANDO M GLUCO SE - >140- 200 Not Available [facility] [address] [facility] [address], [place], [address], 05/09/2020 14:18:12 05/10/19 21 05/09/2020 CMP, serum or plasm a BUN 20 mg/dL 9-20 Not Available [facility] [address] [facility] [address], [place], [address], 05/09/2020 14:18:12 05/10/19 21 05/09/2020 CMP, serum or plasm a crea 0.9 mg/dL 0.7-1. 3 Not Available [facility] [address] [facility] [address], [place], [address], 05/09/2020 14:18:12 05/10/19 21 05/09/2020 CMP, serum or plasm a Na 140 mmol/ L 137-14 5 Not Available [facility] [address] [facility] [address], [place], [address], 05/09/2020 14:18:12 05/10/19 21 05/09/2020 CMP, serum or plasm a K 5.2 mmol/ L 3.5-5. 1 high Not Available [facility] [address] [facility] [address], [place], [address], 05/09/2020 14:18:12 05/10/19 21 05/09/2020 CMP, serum or plasm a cL 102 mmol/ L 98-107 Not Available [facility] [address] [facility] [address], [place], [address], 05/09/2020 14:18:12 05/10/19 21 05/09/2020 CMP, serum or plasm a TCO2 30 mmol/ L 22-33 Not Available [facility] [address] [facility] [address], [place], [address], 05/09/2020 14:18:12 05/10/19 21 05/09/2020 CMP, serum or plasm a anion gap 13.2 mmol/ L 10.0-2 0.0 Not Available [facility] [address] [facility] [address], [place], [address], 05/09/2020 14:18:12 05/10/19 21 05/09/2020 CMP, serum or plasm a calcium 9.9 mg/dL 8.4-10 .2 Not Available [facility] [address] [facility] [address], [place], [address], 05/09/2020 14:18:12 05/10/19 21 05/09/2020 CMP, serum or plasm a total protein 6.9 g/dL 6.3-8. 2 Ortho Diagn ositi cs has deter mined Eltro mbopa g inter feres sligh tly with Vitro s TP resul ts, when [facility]. Eltro mbopa g is a bone marro w stimu lant used to treat throm bocyt openi a and aplas tic anemi a. * Not Available [facility] [address] [facility] [address], [place], [address], 05/09/2020 14:18:12 05/10/19 21 05/09/2020 CMP, serum or plasm a albumin 4.5 g/dL 3.5-5. 0 Not Available [facility] [address] [facility] [address], [place], [address], 05/09/2020 14:18:12 05/10/19 21 05/09/2020 CMP, serum or plasm a globulin 2.4 g/dL 2.2-4. 2 Not Available [facility] [address] [facility] [address], [place], [address], 05/09/2020 14:18:12 05/10/19 21 05/09/2020 CMP, serum or plasm a A/G ratio 1.9 calc 1.0-2. 0 Not Available [facility] [address] [facility] [address], [place], [address], 05/09/2020 14:18:12 05/10/19 21 05/09/2020 CMP, serum or plasm a ALT(SGPT) 21 IU/L 0-50 NOTE: OF 03/01 , DUE TO A REAGE NT BARILLAS E BY THE [facility] ACTUR ER, THE REFER ENCE RANGE S FOR ALT HAVE [facility] ED FOR MALE AND FEMAL E. Not Available [facility] [address] [facility] [address], [place], [address], 05/09/2020 14:18:12 05/10/19 21 05/09/2020 CMP, serum or plasm a AST(SGOT) 27 IU/L 15-46 Not Available [facility] [address] [facility] [address], [place], [address], 05/09/2020 14:18:12 05/10/19 21 05/09/2020 CMP, serum or plasm a alk phos 81 IU/L 38-126 Not Available [facility] [address] [facility] [address], [place], [address], 05/09/2020 14:18:12 05/10/19 21 05/09/2020 CMP, serum [...] aplas tic anemi a. * Not Available [facility] [address] [facility] [address], [place], [address], 05/09/2020 14:18:12 05/10/19 21 05/09/2020 GFR, estim ated (eGFR ), serum eGFR 90.8 mL/mi n >60.0 Note: The GFR resul t is based on a patie nt of the Cauca tom Race. If the patie nt is Afric an anna Hernandes ply the resul t value by 1.21 to obtai n the accur ate GFR value . Not Available [facility] [address] [facility] [address], [place], [address], 05/09/2020 14:18:13 05/10/19 21 05/09/2020 HbA1c (hemo globi n A1c), blood Hb A1C 5.6 % 4.2-5. 8 Not Available [facility] [address] [facility] [address], [place], [address], 05/09/2020 14:53:20 01/24/20 20 01/24/2020 elect harvinder bonilla am No observ ation record ed. BARCODE Not Available 2019 16:18:38 Result Notes None recorded. Problems Name Problem SNOMED Code Status Onset Date Resolution Date Notes Provider Name and Address Organization Details Recorded Time Essential hypertension 10263657 Active 2019 Valente Lua [place], [place] - [facility] 0 15:03:21 Body mass index 30+ - obesity 888524603 Active 2019 Chuyita Izquierdo [place], [place] - [facility] 0 21:33:25 Liver enzymes level above reference range 888105947 Active 2019 Chuyita Izquierdo [place], [place] - [facility] 0 21:33:26 Prediabetes 562945556 Active 2019 Chuyita Izquierdo eryn [facility] 0 21:33:27 Problem Notes None recorded. Procedures Surgical History Date Name Laterality Status Provider Name and Address Organization Details Recorded Time EKG completed Valente Lua [facility] 01/24/2020 14:41:15 Xray 3 views RIGHT FOOT completed Bert Granados [facility] 07/25/2019 12:14:53 cholecystectomy completed Dalila Wen [facility] 01/24/2020 13:14:42 Imaging Results None recorded. [...] Updated DateTime 1 193.04 cm 28.4 kg/m2 204656. 72 g 82 /min 16 /min 97.3 [degF] 97 % 140/80 mm[Hg] Isela Kilgore [facility] 1 09:20:20 Date Recorded Body weight Systolic And Diastolic Provider Name and Address Organization Details Last Updated DateTime 07/25/2019 168449.17 g 160/106 mm[Hg] Lauryn Giron [facility] 07/25/2019 11:01:36 Date Recorded Body height Body mass index (BMI) Body weight Heart rate Oxygen saturation Respiratory rate Body temperature Systolic And Diastolic Provider Name and Address Organization Details Last Updated DateTime 0 193.04 cm 34.4 kg/m2 335984. 64 g 90 /min 97 % 16 /min 97.7 [degF] 140/96 mm[Hg] Dalila Wen [facility] 0 13:12:49 Date Recorded Body height Body mass index (BMI) Body weight Heart rate Respiratory rate Body temperature Oxygen saturation Systolic And Diastolic Provider Name and Address Organization Details Last Updated DateTime 0 193.04 cm 33.7 kg/m2 387514. 29 g 73 /min 16 /min 97.5 [degF] 95 % 120/90 mm[Hg] Isela Kilgore [place] - [facility] 0 08:59:07 Social History Question Answer Notes LastModified by [employer] Details LastModified Time Tobacco Smoking Status Current Every Day Smoker Lauryn cerna [place] - [facility] 07/25/2019 11:02:12 What Is Your Level Of Caffeine Consumption? Heavy [email or web address] Information not available 07/25/2019 In The 14 [...] not available 05/09/2020 Education 4 Year College [email or web address] Information not available 07/25/2019 Marital Status Single [email or web address] Informatio n not available 07/25/2019 What Was The Date Of Your Most Recent Tobacco Screening? 01/24/2020 Information not available 05/09/2020 How Much Tobacco Do You Smoke? 1 PPW [email or web address] Information not available 07/25/2019 Sex: Unknown Functional Status Question Answer Note LastModified by [employer] Details LastModified Time What is your level of alcohol consumption? 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 Family History Relationship Description Onset Age of this Age Resolved Age Notes LastModified by Organization Details LastModified Time Father Hypertensive disorder [email or web address] Not available 03/2019 13:13:40 Father Coronary arterioscler osis [email or web address] Not available 03/2019 13:14:12 Father Myocardial infarction [email or web address] Not available 05/09 09:05:51 Mother Hypertensive disorder [email or web address] Not available 03/2019 13:13:45 Mother Malignant neoplasm of colon [email or web address] Not available 2020 09:05:51 Medical History No medical history recorded. Past Encounters Encounter ID Performer Location Encounter Start Date Encounter Closed Date Diagnosis/Indication Diagnosis SNOMED-CT Code Diagnosis ICD10 Code Diagnosis IMO Codes Diagnosis Note [id number] Costa Granados DPM [facility] [address] [facility], [address] [address] 07/25/2019 10:44:13 07/25/2019 11:21:45 Contusion of foot 84209036 S90.31XA Antalgic gait 47601282 R 26.89 Walking disability 36890 8008 R26.2 [id number] Valente Lua M.D. [facility] [address] [facility], [address] [address] 01/24/2020 12:50:48 01/24/2020 15:10:28 Atypical chest pain 212028821 R07.89 Palpitations 69181890 R0 0.2 Adult heal th examination 336896472 Z00.00 Hypoglycemia 236460206 E 16.2 Fatigue 64046960 R53.83 Essential hypertension 04518298 I10 trial of bystolic 5 mg daily and f/u to discuss. [id number] Valente Lua M.D. [facility] [address] [facility], [address] [address] 02/08/2020 08:50:17 02/09/2020 14:56:02 Essential hypertension 66029787 I10 continue bystolic 5 mg. Blood pressure well controlled on current medication regimen. Educated to monitor blood pressure at home and call office if BP consistent ly >140/90. Prediabetes 593218937 R7 3.03 a1c 6.3%. declines medication today. would like to try diet and lifestyle first. will f/u in 3 months for recheck Liver enzy mes level above reference range 509256919 R74.8 counseled on low-fat diet and weight loss. will recheck in 3 months Body mass index 30+ - obesity 290382309 Z68.33 Discussed lifestyle adjustment s such as increasing intake of fiber and following a heart healthy diet plan (low-fat, low-carb, and low-sodium ). Instructed to eat smaller, more frequent meals. Encouraged to increase amount of physical activity as tolerated, with goal being to exercise daily for a minimum of thirty minutes. [id number] Valente Lua M.D. [facility] [address] [facility], [address] [place] [address] 05/09/2020 09:01:25 05/14/2020 07:21:20 Essential hypertension 72359810 I10 bp stable. no longer taking bystolic. continue to work on lifestyle and continue weight loss efforts. Prediabetes 502375793 R7 3.03 last a1c was 6.3%. he is down 50 lbs. has been working on lifestyle changes including diet and running daily. will recheck today Liver enzy mes level above reference range 101417903 R74.8 continue weight loss efforts. 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 Valente cerna [facility] 01/24/2020 15:09:03 02/08/2020 text/html 02/08/20 pt [...] recheck and see where he is at [facility]hanna cerna [facility] 02/08/2020 21:35:15 05/09/2020 text/html 05/09/20 Pt [...] due for recheck today. MELVINA Garcia - [facility] 05/09/2020 20:38:54
--- OUTSIDE RECORDS SUMMARY | 2025-02-06 18:00 | XMS_ITS | Patient Health Record ---
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
--- OUTSIDE RECORDS SUMMARY | 2025-02-06 18:00 | XMS_ITS | Continuity of Care Document ---
Author Organization [facility] Address [address] [place] [address] Phone Problems Prediabetes Onset:08-Feb-2020 21:33 Elevated liver [...]
== END 2025-02-06 14:50 | disposition home or self-care (01) ==
PROVIDERS: Visit Provider Orthopaedic Surgery
DX: S62.637B Displaced fracture of distal phalanx of left little finger, initial encounter for open fracture (principal)
CPT/HCPCS: 99204

== ENCOUNTER → 2025-02-06 13:49 | Outpatient (BNV) | payer OTHER, SELFPAY | PROVIDERS: Visit Provider Radiology Diagnostic Radiology | DX: S62.637D Displaced fracture of distal phalanx of left little finger, subsequent encounter for fracture with routine healing (principal) | CPT/HCPCS: 73130 ==